=== PATIENT | male | born 1980 | race Caucasian/White ===

== ENCOUNTER → 2018-06-11 14:23 | Outpatient (CLI) | payer OTHER, SELFPAY ==
[2018-06-11 09:11] VITALS: BMI 35.9
== END ==
PROVIDERS: Family Provider Family Medicine; PCP Family Medicine; Referring Provider Physician Assistant; Visit Provider Physician Assistant
DX: J02.9 Acute pharyngitis, unspecified (principal)
CPT/HCPCS: 87077; 87081

== ENCOUNTER 2020-08-25 19:43 | Observation (INO) | payer BC, SELFPAY ==
[2018-06-11 09:11] VITALS: BMI 35.9
[2020-08-25] VITALS (7 sets, daily range): BP systolic 160–175; BP diastolic 89–104; PULSE 59–76; RESP 14–18; TEMP 36.6–36.9; O2SAT 97–100; BMI 33.9; BMI 33.6
--- NOTE | 2020-08-25 19:52 | EKG12_ITS ---
Test Reason : CP Blood Pressure : / mmHG Vent. Rate : 070 BPM Atrial Rate : 070 BPM P-R Int : 132 ms QRS Dur : 100 ms QT Int : 394 ms P-R-T Axes : 041 051 -22 degrees QTc Int : 425 ms Normal sinus rhythm Inferior infarct , age undetermined , cannot be excluded Abnormal ECG Confirmed by POONAM BERGER, DULCE MARIA ([id number]), medical assistant instructor KAREY KIRBY ([id number]) on 08/27/2020 9:28:06 AM Referred By: GRACIELA Confirmed By:DULCE MARIA LEVIN MD
--- NOTE | 2020-08-25 19:55 | RAD_ITS ---
STUDY: X-RAY CHEST REASON FOR EXAM: Male, 39 years old. Chest pain TECHNIQUE: 2 frontal images of the chest were obtained. COMPARISON: 09/14/2016 FINDINGS: The lungs are clear and expanded. There is no demonstrated pleural abnormality. Normal size heart. Normal mediastinum and laly. Normal visualized pulmonary arteries. Normal visualized aortic arch and descending thoracic aorta. Normal visualized thoracic spine. Normal visualized ribs, clavicles, and shoulders. There is no demonstrated abnormality of the visualized soft tissue structures of the upper abdomen. RAD/Chest 1 View (Portable) IMPRESSION: Normal x-ray examination of the chest. Electronically Signed: Avis Johnson MD at 20:48 EDT Tel , Service support ,
[2020-08-25 20:01] LABS: Absolute Lymphocyte Count 1.75 X10^3/uL (0.83-4.51); Absolute Neutrophil Count 3.9 X10^3/uL (2.0-7.7); Basophil# 0.06 X10^3/uL; Basophil% 0.9 % (0-1); Eosinophil# 0.07 X10^3/uL; Eosinophils% 1.1 % (0-5); Hematocrit 43.3 % (40-54); Hemoglobin 15.3 g/dL (13.0-16.5); Lymphocyte # 1.75 X10^3/ul (0.83-4.51); Lymphocyte % 27.5 % (19-41); Mean Corp Hgb Conc 35.3 g/dL (32-36); Mean Corpuscular Hgb 32.6 pg (27.0-32.0); Mean Corpuscular Volume 92.1 fL (80-94); Mean Platelet Vol. 9.7 fl (6.2-12.0); Monocyte# 0.52 X10^3/uL; Monocyte% 8.2 % (0-10); NRBC Flagged by Analyzer 0 % (0-5); Neutrophil # 3.94 X10^3/uL (2.7-7.7); Platelet Count 185 K/mm3 (150-450); RBC Distribution Width CV 11.7 % (11.6-14.6); RBC Distribution Width SD 39.3 fl (35.1-43.9); White Blood Count 6.4 K/mm3 (4.4-11.0)
[2020-08-25 20:19] LABS: Anion Gap 11 (5-15); BUN 10 mg/dL (7-18); BUN/Creat Ratio 7.7 RATIO (10-20); Chloride 96 mmol/L (98-107); EST Glomerular Filtration Rate 65 mL/min (>60); Est Glom Filt Rate - Afr Amer 79 mL/min (>60); Estimated Creatinine Clearance 83.74 ml/min; Glucose 345 mg/dL (74-106); Potassium 3.7 mmol/L (3.5-5.1); Sodium Level 134 mmol/L (136-145)
[2020-08-25] MEDS: Aspirin 81 MG TAB.CHEW 324 MG PO (21:10)
[2020-08-25] MEDS: Nitroglycerin SL (ED/IMG/CATH) 0.4 MG TABLET SL (21:10)
--- NOTE | 2020-08-25 21:56 | ED.VIS.CHEST ---
HPI History of Present Illness Chief Complaint: Chest Pain Informant: patient Onset/Context/Timing Onset: Today Narrative Narrative: Patient presents by EMS to evaluate for left-sided chest pain starting this morning prior to work. States pressure and tightness he had a radiating to his left arm into his elbow. No nausea dyspnea or diaphoresis however state he felt warm. He states he was there throughout the day at work there was no exertion and worsening factors. 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 He is adopted therefore no clear family history. Denies tobacco, denies history of hypertension, diabetes, hypercholesterolemia. Denies cough. He states may have similar symptoms 4 years ago evaluated in the ED which was negative. He is not clear if he thinks he may have had a stress test at that time. No history of heart caths. Reports currently symptoms of tightness of 2 out of 10, no arm pain currently. Prior Similar Symptoms: Yes PFSH PFSH Home Medications NK 08/25/20 [History Last Taken Unknown] Allergy/AdvReac Type Severity Reaction Status Date / Time Penicillins Allergy Unknown Verified 08/25/20 19:45 Social History Smoking Status: Never smoker alcohol intake: current alcohol intake frequency: holidays/special occasions only Alcohol type: beer ROS ROS ED Constitutional Constitutional ED: Denies chills, fever(s) or sweats Eyes Eyes: Denies change in vision ENT ENT ED: Denies dysphagia or sore throat Cardiovascular Cardiovascular: Reports chest pain; Denies leg edema, palpitations or racing heartbeat Respiratory/Chest Respiratory/Chest: Denies cough, dyspnea or dyspnea on exertion Gastrointestinal Gastrointestinal: Denies abdominal pain, diarrhea, nausea or vomiting Genitourinary Genitourinary ED: Denies dysuria, hematuria or urinary frequency Musculoskeletal Musculoskeletal: Denies back pain, extremity pain or neck pain Integumentary Denies rash or wounds Neurologic Neurologic: Denies headache(s), paresthesias or weakness EXAM Physical Exam Const Vital Signs: 08/25/20 19:44 08/25/20 21:02 Temperature 97.9 F Temperature Source Temporal Pulse Rate 75 72 Respiratory Rate 16 14 Respiratory Effort Normal Non-Labored Blood Pressure 161/104 H 172/97 H Blood Pressure Mean 123 122 Pulse Ox 97 97 Oxygen Delivery Method Room Air Room Air Positive well nourished and well developed General Appearance ED: well developed and NAD HEENT Reports moist mucous membranes normocephalic and atraumatic Eyes PERRL, EOMs intact bilaterally and conjunctivae normal General Eye ED: Yes normal appearance of both eyes Neck no lymphadenopathy and supple General: Negative for tenderness Chest Wall Chest: Negative for tenderness Resp normal respiratory effort and normal air movement Effort and Inspection: symmetric chest movement; Negative for respiratory distress Cardio regular rate, regular rhythm and no murmurs Peripheral Pulses: pulses 2+ throughout GI normal to inspection, nondistended, normoactive bowel sounds and non-tender Palpation: Negative for guarding or rebound tenderness present Back/Spine no CVA tenderness and no thoracic nor lumbar tenderness Extremity normal to inspection General Extremety ED: Negative for edema or tenderness General Extremity: Negative for edema Neuro oriented x3 and no sensory deficits noted Sensorium / Orientation: awake and alert Skin no rashes or lesions noted and no wounds MDM MDM MDM Narrative Medical decision making narrative: Patient EKG done in triage sinus rhythm, there was T wave inversions in [address] elevations or depressions. Chest x-ray cardiac labs normal. He was given aspirin in the ED nitro sublingual took his pain from a to 2 to 0.5. He had a headache therefore did not want anything further. He did agree with the Nitropaste. I spoke with Dr. Huynh, who contacted the ED prior the patient's evaluation. Discussed patient's history and findings. He recommended admission for serial enzymes will see the patient in the morning for specific testing. I spoke with hospitalist, Dr. Stout for admission. Lab Data Attestation: I reviewed the patient's lab results. Labs: Laboratory Results - last 24 hr 08/25/20 08/25/20 19:50 19:50 WBC 6.4 RBC 4.70 Hgb 15.3 Hct 43.3 MCV 92.1 MCH 32.6 H MCHC 35.3 RDW Std Deviation 39.3 RDW Coeff of Anand 11.7 Plt Count 185 MPV 9.7 Immature Gran % (Auto) 0.300 Neut % (Auto) 62.0 Lymph % (Auto) 27.5 [place] % (Auto) 8.2 Eos % (Auto) 1.1 Baso % (Auto) 0.9 Absolute Neuts (auto) 3.9 Absolute Lymphs (auto) 1.75 Nucleated RBC % 0 Sodium 134 L Potassium 3.7 Chloride 96 L Carbon Dioxide 27.0 Anion Gap 11 BUN 10 Creatinine 1.30 Estim Creat Clear Calc 83.74 Est GFR (MDRD) Af Amer 79 Est GFR (MDRD) Non-Af 65 BUN/Creatinine Ratio 7.7 L Glucose 345 H Calcium 9.0 Troponin I < 0.015 Radiography Chest X-Ray - ED: 1 View, Read by ED Physician, Read by Radiologist and No Acute Disease Diagnostic Testing: Radiology Impression Chest X-Ray 08/25/20 19:55 IMPRESSION: Normal x-ray examination of the chest. Electronically Signed: Avis Johnson MD at 20:48 EDT Tel , Service support , Discharge Plan Triage Chief Complaint: Chest Pain ED Provider: Gibran Boo Dx/Rx/DC Orders Clinical Impression: Acute chest pain Prescriptions: No Action NK RF: 0 Primary Care Provider: Ranjith Barney Referrals: Ranjith Barney MD [Primary Care Provider] - Disposition Disposition: Acute Care Hospital [facility]
[2020-08-25] MEDS: Acetaminophen 500 MG Tablet 1000 MG PO (22:00)
[2020-08-25] MEDS: Nitroglycerin Oint 1 INCH PACKET TD (22:01)
--- NOTE | 2020-08-25 22:04 | HP.PCM.HOS_ITS ---
HPI - General General Date of Admission: 08/25/20 Date of Service: 08/25/20 Chief Complaint: chest pain HPI Narrative TENZIN CONTEH, is a 39 M who presents with chest pain. Began suddenly when he is going to work and was left-sided going down his left arm. He did feel diaphoretic with this but it did improve slightly but did not go away. Patient was able to work but it did not get worse while he was at work. He went home and stated that he would adjust B but his , who works at [employer], was concerned and reached out to Dr. Huynh and had the patient come into the emergency room. Patient work-up in the emergency room was unremarkable. Patient did receive nitroglycerin and gave him headache but did have some resolution of his pain but did not completely get rid of it. Patient stated that this is pain is start about 4 years ago. He did not undergo a full cardiac work-up at that time but did not have any further events. Patient denies any VTE risk factors, such as immobility and long travel. Emergency room discussed with Dr. Huynh, who stated that he will see the patient in consultation in the morning to determine patient have stress test or cardiac catheterization. PFSH no medical history Home Medications NK 08/25/20 [History Last Taken Unknown] Allergy/AdvReac Type Severity Reaction Status Date / Time Penicillins Allergy Unknown Verified 08/25/20 19:45 other (He does not know his family medical history) Social History Smoking Status: Never smoker alcohol intake: current alcohol intake frequency: holidays/special occasions only Alcohol type: beer ROS ROS Narrative All review of systems were negative except as mentioned above in the history of present illness and the other review of systems. Vital Signs Vital Signs Vital Signs: 08/25/20 19:44 08/25/20 21:02 08/25/20 21:10 Temperature 36.6 C Temperature Source Temporal Pulse Rate 75 72 76 Respiratory Rate 16 14 Respiratory Effort Normal Non-Labored Blood Pressure 161/104 H 172/97 H 172/97 H Blood Pressure Mean 123 122 Pulse Ox 97 97 Oxygen Delivery Method Room Air Room Air 08/25/20 22:01 Temperature Temperature Source Pulse Rate 76 Respiratory Rate Respiratory Effort Blood Pressure 175/96 H Blood Pressure Mean Pulse Ox Oxygen Delivery Method Weight Weight: 113.398 kg Body Mass Index (BMI) 33.9 Physical Exam Const alert General Appearance: cooperative HEENT normocephalic Neck no lymphadenopathy Resp normal respiratory effort and no use of accessory muscles Cardio regular rate, regular rhythm, S1 normal heart sound and S2 normal heart sound GI normal to inspection, nondistended, normoactive bowel sounds, non-tender and non-distended Extremity normal to inspection Skin no rashes or lesions noted, no wounds and skin turgor normal Neuro Neuro Narrative: DTRs intact in lower extremities Sensorium / Orientation: awake and alert Results Lab / Micro Data Attestation: I reviewed the patient's lab results. Result Diagrams: 08/25/20 19:50 08/25/20 19:50 Labs: Laboratory Results - last 24 hr 08/25/20 08/25/20 19:50 19:50 WBC 6.4 RBC 4.70 Hgb 15.3 Hct 43.3 MCV 92.1 MCH 32.6 H MCHC 35.3 RDW Std Deviation 39.3 RDW Coeff of Anand 11.7 Plt Count 185 MPV 9.7 Immature Gran % (Auto) 0.300 Neut % (Auto) 62.0 Lymph % (Auto) 27.5 [place] % (Auto) 8.2 Eos % (Auto) 1.1 Baso % (Auto) 0.9 Absolute Neuts (auto) 3.9 Absolute Lymphs (auto) 1.75 Nucleated RBC % 0 Sodium 134 L Potassium 3.7 Chloride 96 L Carbon Dioxide 27.0 Anion Gap 11 BUN 10 Creatinine 1.30 Estim Creat Clear Calc 83.74 Est GFR (MDRD) Af Amer 79 Est GFR (MDRD) Non-Af 65 BUN/Creatinine Ratio 7.7 L Glucose 345 H Calcium 9.0 Troponin I < 0.015 Radiology Impression Chest X-Ray 08/25/20 19:55 IMPRESSION: Normal x-ray examination of the chest. Electronically Signed: Avis Johnson MD at 20:48 EDT Tel , Service support , Assessment & Plan Assessment/Plan (1) Acute chest pain: (2) Hyperglycemia: PLAN: 1. Chest pain * VANESSA score of 1, Lety score of 31 * ER is reached out to cardiology who will be seeing the patient in consultation on the . And will determine stress test versus cardiac catheterization. Discussed with the patient * Patient already received aspirin in the emergency room and will continue * Cycle troponins, check fasting lipid panel 2. Hyperglycemia * Blood glucose was 349, only available glucose was from September 2016 and was 107 at that time. * Will cycle his blood glucose as well as an A1c. Administer sign scale insulin as needed. 3. VTE prophylaxis: Not indicated given observation status. Charges/Coding Visit Charges OBSV E&M: 71158 Initial observation care L3
--- NOTE | 2020-08-25 22:37 | EKG12_ITS ---
Test Reason : CP ADMIT Blood Pressure : / mmHG Vent. Rate : 060 BPM Atrial Rate : 060 BPM P-R Int : 138 ms QRS Dur : 102 ms QT Int : 426 ms P-R-T Axes : 050 046 -04 degrees QTc Int : 426 ms Normal sinus rhythm Normal ECG Confirmed by POONAM BERGER, DULCE MARIA ([id number]), television news video editor KAREY KIRBY ([id number]) on 08/27/2020 9:33:38 AM Referred By: DR WILLIAMSON Confirmed By:DULCE MARIA LEVIN MD
[2020-08-26] VITALS (16 sets, daily range): BP systolic 147–174; BP diastolic 87–99; PULSE 58–91; RESP 16–20; TEMP 36.7–37.3; O2SAT 95–100
--- NOTE | 2020-08-26 00:34 | NURSING ---
Pt's blood sugar checked 08/25 PM around 2215, it was 239. Data did not transfer from the glucometer to the chart. RISHABH Wilkes.
[2020-08-26 00:41] LABS: Hemoglobin A1c 10.4 % (3.8-5.6)
[2020-08-26 02:59] LABS: Cholesterol 215 mg/dL (200); High Density Lipoprotein 37 mg/dL; Triglycerides 643 mg/dL
--- NOTE | 2020-08-26 05:45 | EKG12_ITS ---
Test Reason : AM EKG Blood Pressure : / mmHG Vent. Rate : 064 BPM Atrial Rate : 064 BPM P-R Int : 138 ms QRS Dur : 104 ms QT Int : 420 ms P-R-T Axes : 052 053 -01 degrees QTc Int : 433 ms Normal sinus rhythm Normal ECG Confirmed by POONAM BERGER, DULC EMARIA ([id number]), editor news KAREY KIRBY ([id number]) on 08/27/2020 9:32:23 AM Referred By: DR DEAN Confirmed By:DULCE MARIA LEVIN MD
[2020-08-26] MEDS: Aspirin E.C. 81 MG Tablet PO (06:09)
[2020-08-26] MEDS: 0.9% Saline Lock 10 ML Syringe IV (06:10)
--- NOTE | 2020-08-26 07:01 | CON.PCM.CA_ITS ---
Assessment & Plan Assessment/Plan (1) Acute chest pain: PLAN: He does present with chest discomfort which is new for him with exertion associated with EKG changes but negative troponin. He is also been noted to have markedly elevated blood sugar. His blood pressure was also noted to be elevated. On the basis of the above I would recommend that we evaluate him directly with a cardiac catheterization. The risk benefits alternatives have been explained to him he understands and agrees to proceed. Addendum: Cardiac catheterization today demonstrated mild disease noted in the left anterior descending artery and diagonal vessel. The rest of the vessels appeared to be free of significant disease. (2) Hypertension: PLAN: With his blood sugar elevation I would recommend that we start him on an YESSICA inhibitor. He has been advised to monitor his blood sugars more gerard sely. (3) Hyperlipidemia: PLAN: He does have a history of hypertriglyceridemia, hyperlipidemia. He would need to have his blood sugar under better control. In addition depending on his coronary status further recommendations will be made regarding the use of statins, omega-3's, or triglyceride agents. Thank you for allowing me to participate in the care of your patient. Please don't hesitate to call if any issues arise. HPI Consult Data Date of Consult: 08/26/20 HPI Narrative HPI Narrative: TENZIN CONTEH, is a 39 M who presented to the emergency him last night after experiencing chest discomfort. He described this as a heaviness in his chest radiating to his left shoulder and the ulnar part of his fingers. He also got mildly diaphoretic. He has had it at least once with exertion. He got quite concerned about this and presented to the emergency room. In the emergency room he was noted to have relief of the discomfort with a sublingual nitroglycerin. His blood pressure was also elevated. Initial cardiac enzymes were noted to be normal and his EKG demonstrated nonspecific T wave inversions. He has had no previous dizziness or diaphoresis no near syncope or syncope. His blood sugar was noted to be markedly elevated. He has not had a previous family history of coronary disease or diabetes mellitus. He has never been diagnosed with the same. At this particular time he is free of chest discomfort. [facility] Home Medications NK 08/25/20 [History Last Taken Unknown] Allergy/AdvReac Type Severity Reaction Status Date / Time Penicillins Allergy Unknown Verified 08/25/20 19:45 Social History Smoking Status: Never smoker alcohol intake: current alcohol intake frequency: holidays/special occasions only Alcohol type: beer ROS Constitutional Constitutional: Denies fever(s) or weight loss Eyes Eyes: Reports as per HPI ENT HEENT: Reports as per HPI Cardiovascular Cardiovascular: Reports chest pain with activity and other Details: He complains of chest discomfort described as a heaviness and pressure sensation radiating to his left arm. Respiratory/Chest Respiratory/Chest: Reports other Gastrointestinal Gastrointestinal: Denies change in bowel habits, nausea, vomiting or weight changes Genitourinary Genitourinary: Denies difficulty urinating Musculoskeletal Musculoskeletal: Denies joint stiffness or muscle weakness Integumentary Integumentary: Denies lesions Neurologic Neurologic: Denies dizziness or syncope Psychiatric Psychiatric: Denies anxiety Endocrine Endocrinology: Denies excessive sweating or fatigue Hematologic/Lymphatic Hematologic/Lymphatic: Denies anemia Allergic/Immunologic Allergic/Immunologic: Denies seasonal rhinorrhea Physical Exam Const oriented x3 and healthy appearing Orientation / Consciousness: awake HEENT normocephalic Eyes PERRL and conjunctivae normal Neck supple, no JVD and no carotid bruits Chest inspection of chest normal Resp normal respiratory effort and clear to auscultation bilaterally Cardio Palpation: normal PMI Rate: regular rate Rhythm: regular rhythm Heart Sounds: S1 normal and S2 normal Peripheral Pulses: pulses 2+ throughout GI normal to inspection, nondistended, normoactive bowel sounds Extremity normal to inspection and no clubbing, cyanosis or edema Psych mental status grossly normal Objective Data Vital Signs: Vital Signs Temp Pulse Resp BP Pulse Ox 99.1 F 71 20 H 160/95 H 100 08/26/20 06:06 08/26/20 06:06 08/26/20 06:06 08/26/20 06:06 08/26/20 06:06 Oxygen Delivery Method Room Air Weight: 247 lb 12.793 oz Body Mass Index (BMI) 33.6 Intake & Output: Intake and Output for Last 24 Hours 08/24/20 08/25/20 08/26/20 23:59 23:59 23:59 Intake Total 120 / 120 0 / 0 Balance 120 / 120 0 / 0 Lab / Micro Data Result Diagrams: 08/25/20 19:50 08/25/20 19:50 Labs: Laboratory Results - last 24 hr 08/25/20 08/25/20 08/25/20 19:50 19:50 19:50 WBC 6.4 RBC 4.70 Hgb 15.3 Hct 43.3 MCV 92.1 MCH 32.6 H MCHC 35.3 RDW Std Deviation 39.3 RDW Coeff of Anand 11.7 Plt Count 185 MPV 9.7 Immature Gran % (Auto) 0.300 Neut % (Auto) 62.0 Lymph % (Auto) 27.5 [place] % (Auto) 8.2 Eos % (Auto) 1.1 Baso % (Auto) 0.9 Absolute Neuts (auto) 3.9 Absolute Lymphs (auto) 1.75 Nucleated RBC % 0 Sodium 134 L Potassium 3.7 Chloride 96 L Carbon Dioxide 27.0 Anion Gap 11 BUN 10 Creatinine 1.30 Estim Creat Clear Calc 83.74 Est GFR (MDRD) Af Amer 79 Est GFR (MDRD) Non-Af 65 BUN/Creatinine Ratio 7.7 L Glucose 345 H Hemoglobin A1c 10.4 H Calcium 9.0 Troponin I < 0.015 Triglycerides Cholesterol LDL Cholesterol VLDL Cholesterol HDL Cholesterol TSH 08/25/20 08/26/20 23:18 02:00 WBC RBC Hgb Hct MCV MCH MCHC RDW Std Deviation RDW Coeff of Anand Plt Count MPV Immature Gran % (Auto) Neut % (Auto) Lymph % (Auto) [place] % (Auto) Eos % (Auto) Baso % (Auto) Absolute Neuts (auto) Absolute Lymphs (auto) Nucleated RBC % Sodium Potassium Chloride Carbon Dioxide Anion Gap BUN Creatinine Estim Creat Clear Calc Est GFR (MDRD) Af Amer Est GFR (MDRD) Non-Af BUN/Creatinine Ratio Glucose Hemoglobin A1c Calcium Troponin I < 0.015 < 0.015 Triglycerides 643 H Cholesterol 215 H LDL Cholesterol TNP VLDL Cholesterol TNP HDL Cholesterol 37 L TSH 3.80 H Cardiology Labs/Tests 08/25/20 19:50: WBC 6.4, RBC 4.70, Hgb 15.3, Hct 43.3, MCV 92.1, MCH 32.6 H, MCHC 35.3, Plt Count 185, MPV 9.7, Immature Gran % (Auto) 0.300, Neut % (Auto) 62.0, Lymph % (Auto) 27.5, [place] % (Auto) 8.2, Eos % (Auto) 1.1, Baso % (Auto) 0.9, Absolute Neuts (auto) 3.9, Nucleated RBC % 0 08/25/20 19:50: Sodium 134 L, Potassium 3.7, Chloride 96 L, Carbon Dioxide 27.0, Anion Gap 11, BUN 10, Creatinine 1.30, Est GFR (MDRD) Af Amer 79, Est GFR (MDRD) Non-Af 65, BUN/Creatinine Ratio 7.7 L, Glucose 345 H, Calcium 9.0, Troponin I < 0.015 08/25/20 19:50: Hemoglobin A1c 10.4 H 08/25/20 23:18: Troponin I < 0.015 08/26/20 02:00: Troponin I < 0.015, Triglycerides 643 H, Cholesterol 215 H, LDL Cholesterol TNP, VLDL Cholesterol TNP, HDL Cholesterol 37 L Rhythm: EKG: Normal sinus rhythm with inferior T wave inversions. ECHO: Stress Test: Cardiac Cath: PCI: CT Surgery: Holter monitor: EPS: PPM: CXR: Chest CT Scan: Radiography Diagnostic Testing: Radiology Impression Chest X-Ray 08/25/20 19:55 IMPRESSION: Normal x-ray examination of the chest. Electronically Signed: Avis Johnson MD at 20:48 EDT Tel , Service support ,
[2020-08-26 08:38] LABS: Bedside Glucose 248 mg/dL (70-110)
[2020-08-26 08:38] LABS: Bedside Glucose 239 mg/dL (70-110)
--- NOTE | 2020-08-26 09:01 | CASEMGMT ---
According to the [employer] website, the following are in-network tertiary facilities: [facility], [facility], [facility], [facility], [facility], [facility], [facility], and . Sonny KEATING CM
[2020-08-26] MEDS: 0.9% Normal Saline 1,000 ML 60 ML IV (10:15)
--- NOTE | 2020-08-26 11:03 | PCM.DC ---
Discharge Instructions Diet Discharge Diet: Carb Control Diet Activity Discharge Activity: Return to Normal Activity Additional Activity Instructions:: Follow post-cath instructions Dressing / Incision Call your doctor if your incision/area has: Continuous Slow Oozing, Sudden Increased Bleeding, Increased Pain/ Swelling, Increased Redness, Foul Smelling Discharge and Swelling at the incision site Follow Up Care Test Results: Test results from this visit will be discussed in further detail at your follow-up appointment, if applicable. Discharge Plan Admission Admit Date/Time: 08/25/20 22:03 Primary Reason for Your Visit: Chest pain Attending Provider: Sohan Aponte Primary Care Provider: Ranjith Barney Consulting Providers: Alfred Huynh Instructions Additional Instructions / Restrictions: Your hemoglobin A1c is 10.4% indicating type 2 diabetes with significantly elevated glucose on admission. Normal hemoglobin A1c is 3.8 to 5.6%. You were started on oral medication, Metformin for blood sugar control. Prescription for glucometer and testing supplies given as well. Recommend checking blood sugar 3 times daily before meals and recording findings for further follow-up with PCP/endocrinology. You were referred to endocrinology for further management and may require insulin for further reduction in hemoglobin A1c. Additionally, you are initiated on lisinopril for high blood pressure and atorvastatin for high cholesterol. Follow-up with primary care physician for further adjustment in these medications. You will need repeat cholesterol panel in 4 to 6 weeks. Recommend checking blood pressure twice daily over the next few weeks and document recordings for follow-up with PCP. Isabel Diehl NP. Discharge Orders/Prescriptions Prescriptions: New lisinopril 20 mg Tablet 20 mg PO DAILY Qty: 30 RF: 0 atorvastatin 20 mg Tablet 20 mg PO QHS Qty: 30 RF: 0 metformin 500 mg tablet,ER meir.retention 24 hr 500 mg PO BID Qty: 60 RF: 0 Other Ambulatory Orders: Glucometer (Routine) Location: None Selected Ordered By: Isabel Diehl NP Referrals / Follow Up: Ranjith Barney MD [Primary Care Provider] - In 1 Week Adrian Medina MD [STAFF PHYSICIAN] - Within 2 Weeks Disposition Disposition (needs filled in before D/C Order can be placed): Home, Self Care
[2020-08-26] MEDS: Lisinopril 20 MG Tablet PO (11:12)
[2020-08-26] MEDS: Insulin Lispro 100 UNIT/ML INSULN.PEN SC (11:18)
--- NOTE | 2020-08-26 11:44 | PCM.DC.SUM ---
Documented by User: Isabel Diehl NP, PEDIATRIC GENETICIST-C 08/26/20 11:50 Providers Date of Admission: 08/25/20 Date of Discharge: 08/26/20 Primary Care Physician: Dr. Ranjith Barney MD Consultations 08/25/20 22:37 Consult: Cardiology Routine Consulting Provider: Alfred Huynh Reason for Consult: chest pain EMERGENT Consult: No MD Notified: Yes Date Notified: 08/25/20 Time Notified: 22:00 Method of Notification: Verbal Reason For Visit: CHEST PAIN Diagnosis Discharge Diagnosis (1) Acute chest pain: Status: Acute Code(s): R07.9 - Chest pain, unspecified (2) Hypertension: Status: Chronic Code(s): I10 - Essential (primary) hypertension (3) Hyperlipidemia: Status: Acute Code(s): E78.5 - Hyperlipidemia, unspecified Medications at Discharge Home Medications atorvastatin 20 mg PO QHS #30 tab 08/26/20 lisinopril 20 mg PO DAILY #30 tab 08/26/20 metformin 500 mg PO BID #60 tab 08/26/20 Hospital Course Operations None Procedures Cardiac catheterization Summary of Care Provided Minutes Spent on Discharge: 35 Hospital Course: Patient is a 39-year-old male admitted 08/25/2020 due to chest pain. 1. Chest pain, ACS ruled out-troponin negative. Cardiology consulted. Patient underwent heart cath which showed no obstructive coronary arteries. Continue medical management per below. Follow-up with PCP in 1 week 2. New diagnosis hypertension-initiated on lisinopril 20 mg daily. Instructed patient on home blood pressure monitoring with further follow-up with PCP. 3. New diagnosis hyperlipidemia-initiated on statin. Recommend repeat lipid profile in 4 to 6 weeks. 4. New onset type 2 diabetes with significant hyperglycemia-hemoglobin A1c 10.4%. Glucose on admission 345. Initiated on metformin extended release 500 mg twice daily. Glucometer and testing supply rx at [place]. Patient will likely need started on insulin as well. Instructed patient on glucose testing at home with further follow-up with PCP/endocrinology referral. Patient seen and examined prior to discharge. Physical assessment as noted below. Patient is stable for discharge with follow up recommendations as noted above. This patient was seen by SARKIS Pfeiffer under the supervision of Dr. Aponte. Physical Exam Const alert, oriented x3 and no apparent distress Orientation / Consciousness: awake, oriented to person, oriented to place and oriented to time HEENT normocephalic and moist oral mucous membranes Eyes PERRL, EOMs intact bilaterally and conjunctivae normal Neck no lymphadenopathy Resp normal respiratory effort and clear to auscultation bilaterally Cardio regular rate, regular rhythm and no murmurs Peripheral Pulses: pulses 2+ throughout GI normal to inspection, nondistended, normoactive bowel sounds, non-tender and non-distended Extremity normal to inspection Skin no rashes or lesions noted Lesions: no lesions Rashes: no rashes Trauma: no lacerations or abrasions Neuro CN's II-XII intact bilaterally, no focal motor deficits, no sensory deficits noted and deep tendon reflexes 2+ bilaterally Psych mental status grossly normal and affect normal Weight / BMI Weight Weight: 247 lb 12.793 oz Body Mass Index (BMI) 33.6 ABG / Lab / Microbiology Data Result Diagrams: 08/25/20 19:50 08/25/20 19:50 Laboratory: Laboratory Results - last 24 hr 08/25/20 08/25/20 08/25/20 19:50 19:50 19:50 WBC 6.4 RBC 4.70 Hgb 15.3 Hct 43.3 MCV 92.1 MCH 32.6 H MCHC 35.3 RDW Std Deviation 39.3 RDW Coeff of Anand 11.7 Plt Count 185 MPV 9.7 Immature Gran % (Auto) 0.300 Neut % (Auto) 62.0 Lymph % (Auto) 27.5 [place] % (Auto) 8.2 Eos % (Auto) 1.1 Baso % (Auto) 0.9 Absolute Neuts (auto) 3.9 Absolute Lymphs (auto) 1.75 Nucleated RBC % 0 Sodium 134 L Potassium 3.7 Chloride 96 L Carbon Dioxide 27.0 Anion Gap 11 BUN 10 Creatinine 1.30 Estim Creat Clear Calc 83.74 Est GFR (MDRD) Af Amer 79 Est GFR (MDRD) Non-Af 65 BUN/Creatinine Ratio 7.7 L Glucose 345 H Hemoglobin A1c 10.4 H Calcium 9.0 Troponin I < 0.015 Triglycerides Cholesterol LDL Cholesterol VLDL Cholesterol HDL Cholesterol TSH POC Glucose 08/25/20 08/25/20 08/26/20 23:10 23:18 02:00 WBC RBC Hgb Hct MCV MCH MCHC RDW Std Deviation RDW Coeff of Anand Plt Count MPV Immature Gran % (Auto) Neut % (Auto) Lymph % (Auto) [place] % (Auto) Eos % (Auto) Baso % (Auto) Absolute Neuts (auto) Absolute Lymphs (auto) Nucleated RBC % Sodium Potassium Chloride Carbon Dioxide Anion Gap BUN Creatinine Estim Creat Clear Calc Est GFR (MDRD) Af Amer Est GFR (MDRD) Non-Af BUN/Creatinine Ratio Glucose Hemoglobin A1c Calcium Troponin I < 0.015 < 0.015 Triglycerides 643 H Cholesterol 215 H LDL Cholesterol TNP VLDL Cholesterol TNP HDL Cholesterol 37 L TSH 3.80 H POC Glucose 239 H 08/26/20 06:07 WBC RBC Hgb Hct MCV MCH MCHC RDW Std Deviation RDW Coeff of Anand Plt Count MPV Immature Gran % (Auto) Neut % (Auto) Lymph % (Auto) [place] % (Auto) Eos % (Auto) Baso % (Auto) Absolute Neuts (auto) Absolute Lymphs (auto) Nucleated RBC % Sodium Potassium Chloride Carbon Dioxide Anion Gap BUN Creatinine Estim Creat Clear Calc Est GFR (MDRD) Af Amer Est GFR (MDRD) Non-Af BUN/Creatinine Ratio Glucose Hemoglobin A1c Calcium Troponin I Triglycerides Cholesterol LDL Cholesterol VLDL Cholesterol HDL Cholesterol TSH POC Glucose 248 H Radiography Diagnostic Testing: Radiology Impression Chest X-Ray 08/25/20 19:55 IMPRESSION: Normal x-ray examination of the chest. Electronically Signed: Avis Johnson MD at 20:48 EDT Tel , Service support , D/C Instructions Discharge Diet: Carb Control Diet Additional Activity Instructions: Follow post-cath instructions Call your doctor if your incision/area has: Continuous Slow Oozing, Sudden Increased Bleeding, Increased Pain/ Swelling, Increased Redness, Foul Smelling Discharge and Swelling at the incision site Meaningful Use Info Meaningful Use Diagnoses (Choose all that apply): None applicable Discharge Plan Admission Admit Date/Time: 08/25/20 22:03 Primary Reason for Your Visit: Chest pain Attending Provider: Sohan Aponte Primary Care Provider: Ranjith Barney Consulting Providers: Alfred Huynh Instructions Additional Instructions / Restrictions: Your hemoglobin A1c is 10.4% indicating type 2 diabetes with significantly elevated glucose on admission. Normal hemoglobin A1c is 3.8 to 5.6%. You were started on oral medication, Metformin for blood sugar control. Prescription for glucometer and testing supplies given as well. Recommend checking blood sugar 3 times daily before meals and recording findings for further follow-up with PCP/endocrinology. You were referred to endocrinology for further management and may require insulin for further reduction in hemoglobin A1c. Additionally, you are initiated on lisinopril for high blood pressure and atorvastatin for high cholesterol. Follow-up with primary care physician for further adjustment in these medications. You will need repeat cholesterol panel in 4 to 6 weeks. Recommend checking blood pressure twice daily over the next few weeks and document recordings for follow-up with PCP. Isabel Diehl NP. Discharge Orders/Prescriptions Prescriptions: New lisinopril 20 mg Tablet 20 mg PO DAILY Qty: 30 RF: 0 atorvastatin 20 mg Tablet 20 mg PO QHS Qty: 30 RF: 0 metformin 500 mg tablet,ER meir.retention 24 hr 500 mg PO BID Qty: 60 RF: 0 Other Ambulatory Orders: Glucometer (Routine) Location: None Selected Ordered By: Isabel Diehl NP Referrals / Follow Up: Ranjith Barney MD [Primary Care Provider] - In 1 Week Adrian Medina MD [STAFF PHYSICIAN] - Within 2 Weeks Disposition Disposition (needs filled in before D/C Order can be placed): Home, Self Care Documented by User: Dr. Sohan Aponte MD 08/26/20 14:02 Providers Date of Admission: 08/25/20 Reason For Visit: CHEST PAIN Medications at Discharge Home Medications atorvastatin 20 mg PO QHS #30 tab 08/26/20 lisinopril 20 mg PO DAILY #30 tab 08/26/20 metformin 500 mg PO BID #60 tab 08/26/20 ABG / Lab / Microbiology Data Result Diagrams: 08/25/20 19:50 08/25/20 19:50 Discharge Plan Admission Admit Date/Time: 08/25/20 22:03 Primary Reason for Your Visit: Chest pain Attending Provider: Sohan Aponte Primary Care Provider: Ranjith Barney Consulting Providers: Alfred Huynh Instructions Additional Instructions / Restrictions: Your hemoglobin A1c is 10.4% indicating type 2 diabetes with significantly elevated glucose on admission. Normal hemoglobin A1c is 3.8 to 5.6%. You were started on oral medication, Metformin for blood sugar control. Prescription for glucometer and testing supplies given as well. Recommend checking blood sugar 3 times daily before meals and recording findings for further follow-up with PCP/endocrinology. You were referred to endocrinology for further management and may require insulin for further reduction in hemoglobin A1c. Additionally, you are initiated on lisinopril for high blood pressure and atorvastatin for high cholesterol. Follow-up with primary care physician for further adjustment in these medications. You will need repeat cholesterol panel in 4 to 6 weeks. Recommend checking blood pressure twice daily over the next few weeks and document recordings for follow-up with PCP. Isabel Diehl NP. Discharge Orders/Prescriptions Prescriptions: New lisinopril 20 mg Tablet 20 mg PO DAILY Qty: 30 RF: 0 atorvastatin 20 mg Tablet 20 mg PO QHS Qty: 30 RF: 0 metformin 500 mg tablet,ER meir.retention 24 hr 500 mg PO BID Qty: 60 RF: 0 Other Ambulatory Orders: Glucometer (Routine) Location: None Selected Ordered By: Isabel Diehl NP Referrals / Follow Up: Ranjith Barney MD [Primary Care Provider] - In 1 Week Adrian Medina MD [STAFF PHYSICIAN] - Within 2 Weeks Disposition Disposition (needs filled in before D/C Order can be placed): Home, Self Care Charges/Coding Addendum Addendum: Dr. Aponte: I personally reviewed the chart and examined the patient, and agree with the above findings. 39-year-old male presents from home with chest pain. Heart cath demonstrated mild disease however he did have an elevated A1c to 10.4 therefore on discharge she was started on Lipitor, lisinopril, and metformin. I had an extensive conversation with both him and his about lifestyle modifications including diet and exercise as well as the reason why I elected not to proceed with insulin and what he has to do to potentially not need medications in the future for his diabetes. He will need to follow-up with his PCP in 3 to 5 days and potentially endocrinology as an outpatient. I did discuss with him the plan for discharge today and both he and his understood the risks and benefits of discharge today and would like him to go home today. Visit Charges OBSV E&M: [id number] Observation care discharge
[2020-08-26 12:06] LABS: Bedside Glucose 276 mg/dL (70-110)
--- NOTE | 2020-08-28 12:31 | CL.D_ITS ---
Patient Name: TENZIN CONTEH Study Date: 08/26/2020 Performing: Alfred Huynh MD Ht: 72.04 inches 183 cm : 1980 Wt: 246.92 lbs 112 kg Age: 39 Gender: male BSA: 2.33 PROCEDURE(S) PERFORMED GE87-MXI/COR/LV CLINICAL PROFILE AND INDICATIONS Indications: Suspected CAD Heart Failure: None Stress/Imaging Stress/Image Study Performed: No CAD Presentations: Unstable angina. CONCLUSIONS Non obstructive coronary arteries Hypertension RECOMMENDATIONS Medical therapy DESCRIPTION OF PROCEDURE The patient arrived to the procedure lab. The risks and benefits of the procedure as well as a full d escription of our services here and current unavailability of surgical backup were fully explained to the patient and/or their significant other prior to the catheterization. The Timeout was completed, verifying the correct patient and procedure. The patient's procedural site was prepped and draped in the usual fashion. Local anesthetic was given subcutaneously to right radial region with Lidocaine 2% . Using a modified Seldinger technique, arterial access was obtained via the right radial artery, a 6 Fr sheath was inserted. Left Coronary Artery selective angiography was performed in multiple views u sing a 5 Fr. 4.0 Schurz catheter. Right Coronary Artery selective angiography was then performed in mu ltiple views using a 5 Fr. 4.0 Schurz catheter. Left Ventriculography was performed in WATTS projection using a 5 Fr. Pigtail catheter. LV to AO pullback pressures were then recorded.The arterial sheath was pulled and a TR Band was applied for hemostasis CORONARY ANGIOGRAPHY DOMINANCE: Co- Dominant LEFT HEART ASSESSMENT Normal Left Ventricular systolic function LEFT MAIN: Angiographically normal LEFT ANTERIOR DESCENDING ARTERY: MID LAD: 30 % Stenosis DIAGONAL 1: Ostial - 50 % Stenosis CIRCUMFLEX ARTERY: No significant disease noted RAMUS: No significant disease noted RIGHT CORONARY ARTERY: No significant disease noted COMPLICATIONS No Complications PROCEDURE MEDICATIONS Versed 1 mg IV Fentanyl 50 mcg IV Versed 1 mg IV Versed 1 mg IV Oxygen: 2 L/min via nasal cannula SUMMARY OF HEMODYNAMIC DATA Time AIR REST ECG 08:07:42 AO 121/85 (104) SA 08:22:34 LV 111/-7, -2 08:29:17 LV 116/-5, -3 08:29:24 LV 116/-3, 0 08:30:00 LV 98/-3, -1 08:30:06 LVp 121/-5, 0 08:30:14 AO 122/76 (100) 08:30:19 Signed By Alfred Huynh MD On 08/26/2020 8:37:09 AM Alfred Huynh MD
== END 2020-08-26 11:05 | disposition home or self-care (01) ==
LOC: ED 22:01 → PCU 22:40
PROVIDERS: Emergency Provider Emergency Medicine; PCP Family Medicine; Visit Provider Family Medicine
DX: R07.89 Other chest pain (principal); I10 Essential (primary) hypertension; E78.5 Hyperlipidemia, unspecified; E11.65 Type 2 diabetes mellitus with hyperglycemia
CPT/HCPCS: 36415; 71045; 80048; 80061; 82962; 83036; 84443; 84484; 85025; 93005; 93458; 99152; 99153; 99218; 99285; J7030; J7040; A4216; C1769; C1894; G0378; Q9967

== ENCOUNTER → 2020-12-22 16:01 | Outpatient (CLI) | payer BC, SELFPAY ==
[2020-12-22 18:14] LABS: ALB/GLOB Ratio 1.1 RATIO (0.9-2.4); AST(SGOT) 19 U/L (15-37); Alanine Aminotransfer ALT/SGPT 31 U/L (16-61); Albumin, Serum 4.1 g/dL (3.2-5.0); Alkaline Phosphatase 43 U/L (45-117); Anion Gap 10 (5-15); BUN 20 mg/dL (7-18); BUN/Creat Ratio 17.5 RATIO (10-20); Calcium,Total 9.5 mg/dL (8.5-10.1); Chloride 104 mmol/L (98-107); Creatinine, Serum 1.14 mg/dL (0.70-1.30); EST Glomerular Filtration Rate 76 mL/min (>60); Est Glom Filt Rate - Afr Amer 91 mL/min (>60); Globulin 3.6 g/dL (2.2-4.2); Glucose 99 mg/dL (74-106); Protein, Total 7.7 g/dL (6.4-8.2); Sodium Level 138 mmol/L (136-145)
[2020-12-22 18:32] LABS: Hemoglobin A1c 5.5 % (3.8-5.6)
[2020-12-22 18:38] LABS: Microalbumin:Creatinine Ratio 238.5 mg/g CRE (<30 mg/g CRE)
== END ==
PROVIDERS: PCP Family Medicine; Referring Provider Family Medicine; Visit Provider Family Medicine
DX: E11.9 Type 2 diabetes mellitus without complications (principal)
CPT/HCPCS: 36415; 80053; 82043; 82570; 83036

== ENCOUNTER 2021-02-02 08:01 | Emergency (ER) | payer BC, SELFPAY ==
[2021-02-02 08:05] VITALS: BP 113/72; PULSE 73; RESP 16; TEMP 36.8; O2SAT 99
[2021-02-02 08:07] VITALS: BP 113/72; PULSE 77; RESP 14; TEMP 36.8; O2SAT 99; BMI 30.1
--- NOTE | 2021-02-02 08:34 | EKG12_ITS ---
Test Reason : SYNCOPE Blood Pressure : / mmHG Vent. Rate : 080 BPM Atrial Rate : 080 BPM P-R Int : 140 ms QRS Dur : 100 ms QT Int : 382 ms P-R-T Axes : 055 054 003 degrees QTc Int : 440 ms Normal sinus rhythm Normal ECG Confirmed by POONAM BERGER, DULCE MARIA ([id number]), supervising editor news reel KAREY KIRBY ([id number]) on 02/03/2021 7:54:29 AM Referred By: GRACIELA Confirmed By:DULCE MARIA LEVIN MD
--- NOTE | 2021-02-02 08:35 | EX.ED.DYSGE1 ---
HPI History of Present Illness Chief Complaint: Syncope Informant: patient and spouse/S.O. Narrative Narrative: Patient presents via EMS after a syncopal episode at work. Patient states he is not felt well for the last 3 or 4 days. He feels very fatigued and tired. He had a mild headache and complaining of some muscular pain in his upper back. He thought he was good enough to go to work this morning. Shortly after arriving at work he felt lightheaded and became diaphoretic. He did have a syncopal episode but coworkers did catch him and lowered him to the ground carefully. Patient denies palpitations. He did take a rapid Covid test at home yesterday that was negative. [facility] Medical History (Updated 02/02/21 @ 11:[address] Sunshine Michel MD) Essential (primary) hypertension Hyperglycemia Hyperlipidemia Home Medications atorvastatin 20 mg PO QHS #30 tab 08/26/20 [Rx Last Taken Unknown] lisinopril 20 mg PO DAILY #30 tab 08/26/20 [Rx Last Taken Unknown] metformin 500 mg PO BID #60 tab 08/26/20 [Rx Last Taken Unknown] Allergy/AdvReac Type Severity Reaction Status Date / Time Penicillins Allergy Unknown Verified 02/02/21 08:06 Surgical History History of left heart catheterization (08/26/20) Social History Smoking Status: Never smoker alcohol intake: current alcohol intake frequency: holidays/special occasions only Alcohol type: beer ROS ROS ED Constitutional Constitutional ED: Denies chills or fever(s) Eyes Eyes: Denies change in vision ENT ENT ED: Denies sore throat Cardiovascular Cardiovascular: Denies chest pain or palpitations Respiratory/Chest Respiratory/Chest: Denies cough or dyspnea Gastrointestinal Gastrointestinal: Denies abdominal pain, diarrhea, nausea or vomiting Genitourinary Genitourinary ED: Denies dysuria Musculoskeletal Musculoskeletal: Reports back pain Integumentary Denies rash Neurologic Neurologic: Reports headache(s); Denies weakness Psychiatric Psychiatric: Denies anxiety or depression Endocrine Endocrinology: Denies polydipsia or polyuria Allergic/Immunologic Allergic/Immunologic ED: Denies urticaria EXAM Physical Exam Const Vital Signs: 02/02/21 08:05 02/02/21 08:07 Temperature 98.3 F 98.3 F Temperature Source Oral Oral Pulse Rate 73 77 Respiratory Rate 16 14 Respiratory Effort Normal Non-Labored Respiratory Pattern Normal Blood Pressure 113/72 113/72 Blood Pressure Mean 85 85 Pulse Ox 99 99 Oxygen Delivery Method Room Air Room Air Positive well nourished and well developed General Appearance ED: well developed HEENT Reports moist mucous membranes Eyes PERRL and EOMs intact bilaterally Neck supple Chest Wall inspection of chest normal and palpation of chest normal Resp normal respiratory effort and clear to auscultation bilaterally Cardio regular rate and regular rhythm GI non-tender Auscultation: hypoactive bowel sounds Palpation: soft Extremity normal to inspection Neuro oriented x3 Sensorium / Orientation: alert Psych mental status grossly normal Skin no rashes or lesions noted MDM MDM MDM Narrative Medical decision making narrative: Lab work, EKG, chest x-ray, head CT obtained. Patient given a liter IV fluids. Lab Data Attestation: I reviewed the patient's lab results. Labs: Laboratory Results - last 24 hr 02/02/21 02/02/21 02/02/21 07:45 08:45 09:05 WBC 4.8 RBC 4.87 Hgb 15.7 Hct 44.1 MCV 90.6 MCH 32.2 H MCHC 35.6 RDW Std Deviation 40.1 RDW Coeff of Anand 12.0 Plt Count 142 L MPV 10.0 Immature Gran % (Auto) 0.200 Neut % (Auto) 67.6 Lymph % (Auto) 19.0 [place] % (Auto) 12.8 H Eos % (Auto) 0.2 Baso % (Auto) 0.2 Absolute Neuts (auto) 3.3 Absolute Lymphs (auto) 0.92 Nucleated RBC % 0 Sodium 132 L Potassium 4.0 Chloride 99 Carbon Dioxide 19.0 L Anion Gap 14 BUN 22 H Creatinine 1.33 H Estim Creat Clear Calc 81.04 Est GFR (MDRD) Af Amer 77 Est GFR (MDRD) Non-Af 63 BUN/Creatinine Ratio 16.5 Glucose 190 H Calcium 9.4 Troponin I High Sens 5 TSH 2.04 Monoscreen Negative Radiography Chest X-Ray - ED: 1 View, Read by ED Physician and No Acute Disease Diagnostic Testing: Clinical Impression(s) from Imaging Studies Brain CT 02/02/21 08:37 IMPRESSION: Normal unenhanced CT scan of the brain. Electronically Signed: Cal Vanessa MD at 9:23 EST , Service support , Chest X-Ray 02/02/21 09:05 IMPRESSION: Normal x-ray examination of the chest. Electronically Signed: Cal Vanessa MD at 9:23 EST , Service support , EKG Initial EKG: Attestation: I personally reviewed and interpreted this EKG as follows: Interpretation: Sinus Rhythm (Sinus 80 with no acute ischemia.) Treatment and Re-Evaluation Comments:: Lab work significant for dehydration with bicarb of 19 and creatinine 1.33. TSH is normal. Troponin normal. [place] test negative. Rapid Covid test negative. Chest x-ray reveals no focal infiltrate. Head CT unremarkable. On repeat evaluation patient does feel improved. Test results discussed with patient and at bedside. He will be discharged home with supportive care. Discharge Plan Triage Chief Complaint: Syncope ED Provider: Sunshine Michel Dx/Rx/DC Orders Clinical Impression: Syncope, Dehydration Instructions: Dehydration, ED Dizziness or Syncope ... Prescriptions: No Action lisinopril 20 mg Tablet 20 mg PO DAILY Qty: 30 RF: 0 atorvastatin 20 mg Tablet 20 mg PO QHS Qty: 30 RF: 0 metformin 500 mg tablet,ER meir.retention 24 hr 500 mg PO BID Qty: 60 RF: 0 Primary Care Provider: Ranjith Barney Referrals: Ranjith Barney MD [Primary Care Provider] - 1 Week if not improving Disposition Disposition: Home, Self Care
--- NOTE | 2021-02-02 08:37 | CT_ITS ---
STUDY: CT BRAIN WITHOUT CONTRAST REASON FOR EXAM: Male, 40 years old. Headaches. Syncope. RADIATION DOSAGE (If Supplied By Facility): CTDIvol = ( 44.99 ) mGy, DLP = ( 812.98 ) mGycm TECHNIQUE: Transaxial CT imaging of the brain was performed without administration of intravenous contrast material. Individualized dose optimization techniques were used for this CT. COMPARISON: No relevant priors. FINDINGS: Normal soft tissue structures. Normal calvarium. Normal size ventricles and extra-axial spaces for the patient''s age. Normal white matter tracts of the cerebral hemispheres. Normal basal ganglia and thalami. Normal brainstem. Normal cerebellum. There is no intracranial hemorrhage. There are no findings of an acute ischemic infarction. Normal visualized paranasal sinuses. CT/Brain/Head without Contrast IMPRESSION: Normal unenhanced CT scan of the brain. Electronically Signed: Cal Vanessa MD at 9:23 EST , Service support ,
[2021-02-02] MEDS: 0.9% Normal Saline 1,000 ML 1000 ML IV (09:00)
--- NOTE | 2021-02-02 09:05 | RAD_ITS ---
STUDY: X-RAY CHEST REASON FOR EXAM: Male, 40 years old. Syncope TECHNIQUE: Single AP portable view of the chest. COMPARISON: Comparison is made with prior study dated 08/25/2020. FINDINGS: EKG electrodes are seen. The lungs are clear and expanded. There is no demonstrated pleural abnormality. Normal size heart. Normal mediastinum and laly. Normal visualized pulmonary arteries. Normal visualized aortic arch and descending thoracic aorta. Normal visualized thoracic spine. Normal visualized ribs, clavicles, and shoulders. There is no demonstrated abnormality of the visualized soft tissue structures of the upper abdomen. RAD/Chest 1 View (Portable) IMPRESSION: Normal x-ray examination of the chest. Electronically Signed: Cal Vanessa MD at 9:23 EST , Service support ,
[2021-02-02 09:18] LABS: Absolute Lymphocyte Count 0.92 X10^3/uL (0.83-4.51); Absolute Neutrophil Count 3.3 X10^3/uL (2.0-7.7); Basophil# 0.01 X10^3/uL; Basophil% 0.2 % (0-1); Eosinophil# 0.01 X10^3/uL; Eosinophils% 0.2 % (0-5); Hematocrit 44.1 % (40-54); Hemoglobin 15.7 g/dL (13.0-16.5); Lymphocyte # 0.92 X10^3/ul (0.83-4.51); Mean Corp Hgb Conc 35.6 g/dL (32-36); Mean Corpuscular Hgb 32.2 pg (27.0-32.0); Mean Corpuscular Volume 90.6 fL (80-94); Monocyte# 0.62 X10^3/uL; Monocyte% 12.8 % (0-10); NRBC Flagged by Analyzer 0 % (0-5); Neutrophil # 3.26 X10^3/uL (2.7-7.7); Neutrophil % 67.6 % (47-70); Platelet Count 142 K/mm3 (150-450); RBC Distribution Width SD 40.1 fl (35.1-43.9); Red Blood Count 4.87 M/mm3 (4.6-6.2); White Blood Count 4.8 K/mm3 (4.4-11.0)
[2021-02-02 09:36] LABS: Anion Gap 14 (5-15); BUN 22 mg/dL (7-18); BUN/Creat Ratio 16.5 RATIO (10-20); Calcium,Total 9.4 mg/dL (8.5-10.1); Chloride 99 mmol/L (98-107); Creatinine, Serum 1.33 mg/dL (0.70-1.30); EST Glomerular Filtration Rate 63 mL/min (>60); Est Glom Filt Rate - Afr Amer 77 mL/min (>60); Estimated Creatinine Clearance 81.04 ml/min; Glucose 190 mg/dL (74-106); Sodium Level 132 mmol/L (136-145); Thyroid Stim Hormone (TSH) 2.04 uIU/mL (0.358-3.74); Troponin-I HS 5 pg/mL (3.0-78.0)
[2021-02-02 10:12] LABS: Internal QC Validated? YES +Cl - CLEAR BKGD
[2021-02-02 10:13] LABS: Monotest Negative (Negative)
[2021-02-02 11:38] VITALS: BP 130/74; PULSE 79; RESP 14; TEMP 37.1; O2SAT 93; O2SAT 96
== END 2021-02-02 11:41 | disposition home or self-care (01) ==
PROVIDERS: Emergency Provider Emergency Medicine; PCP Family Medicine
DX: R55 Syncope and collapse (principal); E86.0 Dehydration; I10 Essential (primary) hypertension; E78.5 Hyperlipidemia, unspecified; R73.9 Hyperglycemia, unspecified; Z79.84 Long term (current) use of oral hypoglycemic drugs; Z79.899 Other long term (current) drug therapy
CPT/HCPCS: 70450; 71045; 80048; 84443; 84484; 85025; 86308; 87426; 93005; 99285

== ENCOUNTER → 2021-02-03 14:57 | Outpatient (CLI) | payer BC, SELFPAY ==
[2021-02-03 18:15] LABS: Internal QC Validated? YES +Cl - CLEAR BKGD; Monotest Negative (Negative)
[2021-02-03 18:17] LABS: AST(SGOT) 41 U/L (15-37); Alanine Aminotransfer ALT/SGPT 58 U/L (16-61); Alkaline Phosphatase 52 U/L (45-117); Anion Gap 10 (5-15); BUN 16 mg/dL (7-18); Calcium,Total 9.2 mg/dL (8.5-10.1); Chloride 100 mmol/L (98-107); Creatinine, Serum 1.07 mg/dL (0.70-1.30); EST Glomerular Filtration Rate 81 mL/min (>60); Est Glom Filt Rate - Afr Amer 98 mL/min (>60); Globulin 4.1 g/dL (2.2-4.2); Glucose 106 mg/dL (74-106); Potassium 3.8 mmol/L (3.5-5.1); Protein, Total 8.1 g/dL (6.4-8.2); Rheumatoid Factor < 10.0 IU/mL (<15); Sodium Level 135 mmol/L (136-145)
[2021-02-03 18:57] LABS: Osmolality, Serum 283 mOsm/KG (275-295)
[2021-02-05 15:45] LABS: ANTINUCLEAR ANTIBODIES DIRECT Negative (Negative)
[2021-02-06 00:06] LABS: Endomysial Antibody IgA Negative (Negative); Immunoglobulin A 308 mg/dL (90-386)
[2021-02-06 08:15] LABS: CCP IgG Antibodies 5 units (0-19); Deamidated Gliadin IgA 5 units (0-19); Deamidated Gliadin IgG 1 units (0-19); t-Transglutaminase IgA <2 U/mL (0-3)
== END ==
PROVIDERS: PCP Family Medicine; Referring Provider Family Medicine; Visit Provider Family Medicine
DX: R19.7 Diarrhea, unspecified (principal); E87.1 Hypo-osmolality and hyponatremia; R55 Syncope and collapse; M25.539 Pain in unspecified wrist
CPT/HCPCS: 36415; 80053; 82784; 83516; 83930; 84443; 86038; 86200; 86255; 86308; 86431; 87506

== ENCOUNTER 2021-10-12 09:38 | Emergency (ER) | payer BC, SELFPAY ==
[2021-10-12 09:39] VITALS: BP 163/97; PULSE 71; RESP 15; TEMP 37.1; O2SAT 99; BMI 33.7
--- NOTE | 2021-10-12 10:22 | EKG12_ITS ---
Test Reason : CP Blood Pressure : / mmHG Vent. Rate : 068 BPM Atrial Rate : 068 BPM P-R Int : 148 ms QRS Dur : 104 ms QT Int : 398 ms P-R-T Axes : 045 040 -08 degrees QTc Int : 423 ms Normal sinus rhythm Possible Inferior infarct , age undetermined Abnormal ECG Confirmed by JERMAINE BERGER, IFEOMA ([id number]), index editor JESUSITA JOYA ([id number]) on 10/13/2021 9:24:18 AM Referred By: JANELL/DALLIN Confirmed By:IFEOMA DEAN MD
[2021-10-12 10:32] LABS: Absolute Lymphocyte Count 1.44 X10^3/uL (0.83-4.51); Absolute Neutrophil Count 4.5 X10^3/uL (2.0-7.7); Basophil# 0.05 X10^3/uL; Basophil% 0.8 % (0-1); Eosinophil# 0.08 X10^3/uL; Eosinophils% 1.2 % (0-5); Hematocrit 41.6 % (40-54); Lymphocyte # 1.44 X10^3/ul (0.83-4.51); Lymphocyte % 22.2 % (19-41); Mean Corp Hgb Conc 36.1 g/dL (32-36); Mean Corpuscular Volume 91.6 fL (80-94); Mean Platelet Vol. 9.6 fl (6.2-12.0); Monocyte# 0.37 X10^3/uL; Monocyte% 5.7 % (0-10); NRBC Flagged by Analyzer 0 % (0-5); Neutrophil # 4.51 X10^3/uL (2.7-7.7); Neutrophil % 69.5 % (47-70); Platelet Count 180 K/mm3 (150-450); RBC Distribution Width CV 12.1 % (11.6-14.6); RBC Distribution Width SD 40.5 fl (35.1-43.9); Red Blood Count 4.54 M/mm3 (4.6-6.2); White Blood Count 6.5 K/mm3 (4.4-11.0)
[2021-10-12 10:48] LABS: Anion Gap 12 (5-15); BUN 17 mg/dL (7-18); BUN/Creat Ratio 13.7 RATIO (10-20); Calcium,Total 9.7 mg/dL (8.5-10.1); Chloride 103 mmol/L (98-107); Creatinine, Serum 1.24 mg/dL (0.70-1.30); EST Glomerular Filtration Rate 68 mL/min (>60); Est Glom Filt Rate - Afr Amer 83 mL/min (>60); Estimated Creatinine Clearance 86.05 ml/min; Glucose 155 mg/dL (74-106); Potassium 4.3 mmol/L (3.5-5.1); Sodium Level 136 mmol/L (136-145); Troponin-I HS (w/2H Reflex) 5 pg/mL (3.0-78.0)
[2021-10-12] MEDS: Aspirin 81 MG TAB.CHEW 243 MG PO (10:48)
--- NOTE | 2021-10-12 10:50 | ED.RN ---
Pt declined Nitro at this time.
--- NOTE | 2021-10-12 10:54 | RAD_ITS ---
STUDY: X-RAY CHEST REASON FOR EXAM: Male, 41 years old. Chest pain TECHNIQUE: Single AP portable view of the chest. COMPARISON: Comparison is made with prior study dated 02/02/2021. FINDINGS: EKG electrodes are seen. The lungs are clear and expanded. There is no demonstrated pleural abnormality. Normal size heart. Normal mediastinum and laly. Normal visualized pulmonary arteries. Normal visualized aortic arch and descending thoracic aorta. There are degenerative changes of the visualized thoracic spine. Normal visualized ribs, clavicles, and shoulders. There is no demonstrated abnormality of the visualized soft tissue structures of the upper abdomen. RAD/Chest 1 View (Portable) IMPRESSION: Normal x-ray examination of the chest. Electronically Signed: Cal Vanessa MD at 11:10 EDT ,
[2021-10-12 10:56] LABS: D-Dimer Quantitative (DVT/PE) 0.37 FEU/ug/m (0.27-0.49)
[2021-10-12 11:07] VITALS: BP 156/92; PULSE 77; RESP 22; O2SAT 99
--- NOTE | 2021-10-12 11:50 | ED.VIS.CHEST ---
HPI History of Present Illness Chief Complaint: Chest Pain Informant: patient Narrative Narrative: Patient is a 41-year-old male with history of hypertension, hyperlipidemia and diabetes mellitus presenting with near syncope and chest pain. Patient was at work today when he started feel lightheaded, sweaty and like he was going to pass out. He had tightness in the left side of his chest and pain rating to his bicep. He describes the pain in his bicep as throbbing. Patient actually drove home but at home he felt more short of breath and weak so he came to the emergency room. Patient took 81 mg of aspirin earlier today. Currently has a mild discomfort in his chest but the bicep pain has resolved and he states the discomfort in his chest is much better. Denies any swelling of his legs. Denies any history of DVT or PE. Has had 2 prior near syncopal/syncopal episodes over the past year. The first time was when he was diagnosed with diabetes and also had a heart cath per his which was normal. The second time his lisinopril was cut in half. Patient denies any recent medication changes. Denies any sick contacts. No other complaints at this time. Heart cath reviewed from 08/28/2020 which showed nonobstructive coronary arteries with 30% stenosis of the mid LAD, 50% stenosis of diagonal ostial and no significant disease in the other arteries. Normal left ventricular systolic function at that time. [facility] Medical History Essential (primary) hypertension Hyperglycemia Hyperlipidemia Home Medications atorvastatin 20 mg tablet 20 mg PO QHS #30 tabs 08/26/20 [Rx Last Taken Unknown] aspirin 81 mg tablet 81 mg PO DAILY 10/12/21 [History Last Taken Unknown] lisinopril 20 mg tablet 10 mg PO DAILY 10/12/21 [History Last Taken Unknown] metformin 500 mg 24 hr tablet,extended release 500 mg PO DAILY 10/12/21 [History Last Taken Unknown] ieqgvmep-wfulcjsi-ibpow acid 400 mcg-vit K 20 mcg-lycop 300 mcg tablet (Men's Multivitamin) 1 tab PO DAILY 10/12/21 [History Last Taken Unknown] zinc 50 mg tablet 50 mg PO DAILY 10/12/21 [History Last Taken Unknown] Allergy/AdvReac Type Severity Reaction Status Date / Time Penicillins Allergy Unknown Verified 10/12/21 09:39 Surgical History History of left heart catheterization (08/26/20) Social History Smoking Status: Never smoker alcohol intake: current alcohol intake frequency: holidays/special occasions only Alcohol type: beer ROS ROS ED Constitutional Constitutional ED: Reports sweats; Denies chills or fever(s) Eyes Eyes: Denies blurry vision or change in vision ENT ENT ED: Denies rhinorrhea or sore throat Cardiovascular Cardiovascular: Reports as per HPI and chest pain Respiratory/Chest Respiratory/Chest: Reports dyspnea; Denies cough or dyspnea on exertion Gastrointestinal Gastrointestinal: Denies abdominal pain, nausea or vomiting Genitourinary Genitourinary ED: Denies dysuria or hematuria Musculoskeletal Musculoskeletal: Reports other Details: left arm pain ; Denies arthralgias or myalgias Integumentary Denies rash Neurologic Neurologic: Reports weakness; Denies headache(s) or paresthesias Psychiatric Psychiatric: Denies anxiety Hematologic/Lymphatic Hematologic/Lymphatic: Denies easy bleeding or easy bruising EXAM Physical Exam Const Vital Signs: 10/12/21 09:39 10/12/21 09:50 10/12/21 11:07 Temperature 98.7 F Temperature Source Oral Pulse Rate 71 Respiratory Rate 15 Respiratory Effort Normal Non-Labored Blood Pressure 163/97 H Blood Pressure Mean 119 Pulse Ox 99 Oxygen Delivery Method Room Air Room Air 10/12/21 11:07 10/12/21 12:53 Temperature Temperature Source Pulse Rate 77 68 Respiratory Rate 22 H 19 H Respiratory Effort Blood Pressure 156/92 H 155/93 H Blood Pressure Mean 113 113 Pulse Ox 99 97 Oxygen Delivery Method Room Air Room Air Positive well nourished and well developed General Appearance ED: well developed and NAD HEENT Reports moist mucous membranes normocephalic; Negative for atraumatic Eyes PERRL and EOMs intact bilaterally Neck supple and no JVD Chest Wall inspection of chest normal and palpation of chest normal Resp normal respiratory effort and clear to auscultation bilaterally Cardio regular rate, regular rhythm and no murmurs GI normal to inspection, nondistended, normoactive bowel sounds, soft to palpation and non-tender Extremity normal to inspection General Extremety ED: Negative for edema, pulses abnormal or tenderness General Extremity: Negative for edema or pulses abnormal Neuro oriented x3 and CN's II-XII intact bilaterally Neuro Narrative: No focal deficits appreciated Psych mental status grossly normal Skin no rashes or lesions noted and no wounds Heart Score History: Moderately Suspicious ECG: Nonspecific Repolarization Age: </= 45 years Risk Factors: 1 or 2 Risk Factors Troponin: </= Normal Limit Score: 3 MDM MDM MDM Narrative Medical decision making narrative: Patient is evaluated for sudden onset of lightheadedness, sweating and near syncope. He has associated chest tightness. Patient does not have any acute EKG changes. He had a relatively normal cardiac catheterization 1 year ago. High sensitive troponin is normal at 5 and 4. Patient is low risk for PE and D-dimer is normal. I do not think a CTA is indicated. Chest x-ray does not show any acute process as interpreted by myself as well as radiology. Patient was ordered nitroglycerin however he declined stating the pain is improving and he does not want to have unless he really needs it. On repeat evaluation he no longer has any chest discomfort so nitroglycerin is not given. He did receive aspirin in the emergency room. Patient is feeling better on repeat evaluation. does now tell me that patient was outside in the sun all weekend and was not drinking much water at all. She thinks maybe he got dehydrated. He is given a bolus of IV fluids. Patient will be discharged home to follow-up with his primary care doctor. He is hemodynamically stable in the emergency room. I think he stable for further outpatient work-up. Lab Data Attestation: I reviewed the patient's lab results. Labs: Laboratory Results - last 24 hr 10/12/21 10/12/21 10/12/21 10:23 10:23 10:23 WBC 6.5 RBC 4.54 L Hgb 15.0 Hct 41.6 MCV 91.6 MCH 33.0 H MCHC 36.1 H RDW Std Deviation 40.5 RDW Coeff of Anand 12.1 Plt Count 180 MPV 9.6 Immature Gran % (Auto) 0.600 Neut % (Auto) 69.5 Lymph % (Auto) 22.2 [place] % (Auto) 5.7 Eos % (Auto) 1.2 Baso % (Auto) 0.8 Absolute Neuts (auto) 4.5 Absolute Lymphs (auto) 1.44 Nucleated RBC % 0 D-Dimer Quant (PE/DVT) 0.37 Sodium 136 Potassium 4.3 Chloride 103 Carbon Dioxide 21.0 Anion Gap 12 BUN 17 Creatinine 1.24 Estim Creat Clear Calc 86.05 Est GFR (MDRD) Af Amer 83 Est GFR (MDRD) Non-Af 68 BUN/Creatinine Ratio 13.7 Glucose 155 H Calcium 9.7 Troponin I High Sens 5 10/12/21 12:50 WBC RBC Hgb Hct MCV MCH MCHC RDW Std Deviation RDW Coeff of Anand Plt Count MPV Immature Gran % (Auto) Neut % (Auto) Lymph % (Auto) [place] % (Auto) Eos % (Auto) Baso % (Auto) Absolute Neuts (auto) Absolute Lymphs (auto) Nucleated RBC % D-Dimer Quant (PE/DVT) Sodium Potassium Chloride Carbon Dioxide Anion Gap BUN Creatinine Estim Creat Clear Calc Est GFR (MDRD) Af Amer Est GFR (MDRD) Non-Af BUN/Creatinine Ratio Glucose Calcium Troponin I High Sens 4 Radiography Diagnostic Testing: Clinical Impression(s) from Imaging Studies Chest X-Ray 10/12/21 10:54 IMPRESSION: Normal x-ray examination of the chest. Electronically Signed: Cal Vanessa MD at 11:10 EDT , Rhythm Strip Rhythm Strip: Sinus Rhythm Rate: 68 Ectopy: None EKG Initial EKG: Attestation: I personally reviewed and interpreted this EKG as follows: Interpretation: Sinus Rhythm Comments: Normal sinus rhythm at a rate of 68 Normal axis Normal intervals Normal ST segment No change compared to prior EKG on 02/02/2021 Discharge Plan Triage Chief Complaint: Chest Pain ED Provider: Gabrielle Alas Dx/Rx/DC Orders Clinical Impression: Near syncope, Essential (primary) hypertension, Chest pain Instructions: ED Chest Pain, Uncertain Cause, ED Near-Fainting, Uncertain Cause Prescriptions: No Action atorvastatin 20 mg Tablet 20 mg PO QHS Qty: 30 0RF zinc 50 mg Tablet 50 mg PO DAILY aspirin 81 mg Tablet 81 mg PO DAILY Men's Multivitamin 400-20-300 mcg Tablet 1 tab PO DAILY lisinopril 20 mg tablet 10 mg PO DAILY metformin 500 mg tablet,ER meir.retention 24 hr 500 mg PO DAILY Primary Care Provider: Ranjith Barney Referrals: Ranjith Barney MD [Primary Care Provider] - Disposition Disposition: Home, Self Care
[2021-10-12 12:28] LABS: Reflex Troponin-HS? (from REC) Y
[2021-10-12] MEDS: 0.9% Normal Saline 1,000 ML 999 ML IV (12:52)
[2021-10-12 12:53] VITALS: BP 155/93; PULSE 68; RESP 19; O2SAT 97
[2021-10-12 13:15] LABS: Troponin-I HS 4 pg/mL (3.0-78.0)
[2021-10-12 15:07] VITALS: BP 144/84
== END 2021-10-12 15:09 | disposition home or self-care (01) ==
PROVIDERS: Emergency Provider Emergency Medicine; PCP Family Medicine; Visit Provider Emergency Medicine
DX: R55 Syncope and collapse (principal); E11.9 Type 2 diabetes mellitus without complications; R07.9 Chest pain, unspecified; I25.10 Atherosclerotic heart disease of native coronary artery without angina pectoris; I10 Essential (primary) hypertension; E78.5 Hyperlipidemia, unspecified; Z79.82 Long term (current) use of aspirin; Z79.84 Long term (current) use of oral hypoglycemic drugs; Z79.899 Other long term (current) drug therapy
CPT/HCPCS: 71045; 80048; 84484; 85025; 85379; 93005; 96360; 96361; 99285; J7030; A4216

== ENCOUNTER 2022-04-01 06:58 | Emergency (ER) | payer BC, SELFPAY ==
[2022-04-01 06:59] VITALS: BP 185/107; PULSE 65; RESP 20; TEMP 36.2; O2SAT 100; BMI 31.8
--- NOTE | 2022-04-01 07:15 | EKG12_ITS ---
Test Reason : Blood Pressure : / mmHG Vent. Rate : 066 BPM Atrial Rate : 066 BPM P-R Int : 138 ms QRS Dur : 100 ms QT Int : 398 ms P-R-T Axes : 045 042 -03 degrees QTc Int : 417 ms Normal sinus rhythm Possible Inferior infarct , age undetermined Abnormal ECG Confirmed by JERMAINE BERGER, IFEOMA ([id number]), make up editor KAREY KIRBY ([id number]) on 04/05/2022 9:12:24 AM Referred By: HAIDER Confirmed By:IFEOMA DEAN MD
--- NOTE | 2022-04-01 07:16 | ED.VIS.CHEST ---
HPI History of Present Illness Chief Complaint: Chest Pain Informant: patient and spouse/S.O. Onset/Context/Timing Onset: Today (0545) Activity at onset: sudden Timing: Continuous Quality: Positive for Pressure and Tightness Location: Left Chest Current Severity: Mild Maximum Severity: Moderate Worsened By: Nothing Relieved By: Nothing Associated Symptoms: Positive for Dyspnea; Negative for Nausea, Vomiting, Diaphoresis, Cough, Fever, Lightheadedness, Acid Reflux or Palpitations Narrative Narrative: Presents with chest pain started at rest at 0545. This was left-sided scribed as pressure and associate with shortness of breath. There is no diaphoresis, nausea or radiation of the discomfort. Patient's been seen several times for this. Patient states he had a cardiac cath which was normal. Review of Dr. Huynh's note indicates that the cardiac cath was not normal. Findings are: LEFT MAIN: Angiographically normal LEFT ANTERIOR DESCENDING ARTERY: MID LAD: 30 % Stenosis DIAGONAL 1: Ostial - 50 % Stenosis CIRCUMFLEX ARTERY: No significant disease noted RAMUS: No significant disease noted RIGHT CORONARY ARTERY: No significant disease noted Patient is still having discomfort. Patient did take aspirin. Patient has risk factors i.e. hypertension, diabetes hypercholesterolemia after reviewing prior records. Patient's cholesterol is elevated, HDL is low and triglycerides are high. Patient is on atorvastatin. Patient does have intolerance to greasy and fried foods and also broccoli. Patient has never had a EGD. Patient denies black or maroon-colored stool. Patient denies change in color, consistency or caliber of his stool. Patient took Advil with no improvement. He did not try an acids. Patient denies history of VTE. Patient has no risk factors. Patient denies leg pain, swelling discoloration. Prior Similar Symptoms: Yes Recent Illness/Hospitalization: No CVD Risk Factors: Positive for Hypertension, Diabetes and Hypercholesterolemia; Negative for Smoking PE Risk Factors: Negative for Recent Travel/Surgery, Recent Immobilization, Prior DVT or PE, Cancer or OCP + Smoking + >/=35 TAD Risk Factors: Positive for Hypertension; Negative for Marfan's Syndrome or Family History [facility] Medical History Essential (primary) hypertension Hyperglycemia Hyperlipidemia Home Medications atorvastatin 20 mg tablet 20 mg PO QHS #30 tabs 08/26/20 [Rx Last Taken Unknown] aspirin 81 mg tablet 81 mg PO DAILY 10/12/21 [History Last Taken Unknown] metformin 500 mg 24 hr tablet,extended release 500 mg PO DAILY 10/12/21 [History Last Taken Unknown] ptnonbuv-tnxukfoh-iabnn acid 400 mcg-vit K 20 mcg-lycop 300 mcg tablet (Men's Multivitamin) 1 tab PO DAILY 10/12/21 [History Last Taken Unknown] zinc 50 mg tablet 50 mg PO DAILY 10/12/21 [History Last Taken Unknown] quinapril 10 mg tablet 10 mg PO DAILY 04/01/22 [History Last Taken Unknown] Allergy/AdvReac Type Severity Reaction Status Date / Time Penicillins Allergy Unknown Verified 04/01/22 07:03 Surgical History History of left heart catheterization (08/26/20) Social History (Updated 04/01/22 @ 07:[address] Zachery Donaldson MD) household members: spouse and children Smoking Status: Never smoker alcohol intake: current alcohol intake frequency: holidays/special occasions only Alcohol type: beer substance use type: does not use ROS ROS ED Constitutional Constitutional ED: Denies chills, fever(s), subjective, sweats or weight loss Eyes Eyes: Reports none ENT ENT ED: Denies ear pain, rhinorrhea or sore throat Cardiovascular Cardiovascular: Reports as per HPI; Denies orthopnea or paroxysmal nocturnal dyspnea Respiratory/Chest Respiratory/Chest: Reports dyspnea; Denies cough, dyspnea on exertion, orthopnea or paroxysmal nocturnal dyspnea Gastrointestinal Gastrointestinal: Denies abdominal pain, constipation, diarrhea, melena, nausea or vomiting Genitourinary Genitourinary ED: Denies dysuria, hematuria or urinary frequency Musculoskeletal Musculoskeletal: Reports other Details: No radiation of discomfort to shoulders, arm or back ; Denies arthralgias, back pain or myalgias Integumentary Denies rash Psychiatric Psychiatric: Denies depression Endocrine Endocrinology: Denies cold intolerance or heat intolerance Hematologic/Lymphatic Hematologic/Lymphatic: Denies easy bleeding or easy bruising EXAM Physical Exam Const Vital Signs: 04/01/22 06:59 04/01/22 06:59 04/01/22 07:32 Temperature 97.2 F L Temperature Source Temporal Pulse Rate 65 Respiratory Rate 20 H Respiratory Effort Short of Breath Respiratory Pattern Tachypnea Blood Pressure 185/107 H Blood Pressure Mean 133 Pulse Ox 100 96 Oxygen Delivery Method Room Air Room Air 04/01/22 09:14 Temperature Temperature Source Pulse Rate 72 Respiratory Rate 16 Respiratory Effort Respiratory Pattern Blood Pressure 151/88 H Blood Pressure Mean 109 Pulse Ox 97 Oxygen Delivery Method Room Air Positive well nourished, well developed and obese General Appearance ED: well developed and NAD; Negative for pallor Nutritional Appearance: obese HEENT Reports moist mucous membranes HEENT Narrative: Nares patent. Ears normal. Mucosa moist. normocephalic and atraumatic Eyes PERRL and EOMs intact bilaterally General Eye ED: Negative for pale conjunctiva or scleral icterus Neck no lymphadenopathy, supple and no JVD Neck Narrative: Trachea is midline. There is no dysphonia. Chest Wall inspection of chest normal and palpation of chest normal Resp normal respiratory effort and clear to auscultation bilaterally Cardio regular rate, regular rhythm, S1 normal heart sound, S2 normal heart sound and no murmurs GI normal to inspection, nondistended, normoactive bowel sounds, soft to palpation, non-tender, non-distended and no masses; Negative for hepatosplenomegaly Back/Spine no CVA tenderness and no thoracic nor lumbar tenderness Back/Spine Narrative: Inspection is normal. Extremity normal to inspection Extremity Narrative: There is no asymmetry, swelling, discoloration, leg vein distention, palpable cords or tenderness along the distribution of the deep venous system. Neuro oriented x3, CN's II-XII intact bilaterally and no sensory deficits noted Sensorium / Orientation: awake and alert Psych mental status grossly normal Skin no rashes or lesions noted and no wounds General Skin Exam: Negative for jaundice or pallor Heart Score History: Slightly/Non-Suspicious ECG: Nonspecific Repolarization Age: </= 45 years Risk Factors: >/= 3 Risk Factors or History of CAD Score: 3 MDM MDM MDM Narrative Medical decision making narrative: Review of prior cardiac catheterization reveals the patient did not have a clean cardiac cath. Patient has narrowing which is insignificant. There is 30% stenosis of the mid LAD and 50% stenosis of ostial first diagonal.. Since patient has more than 1 risk factor will obtain EKG, troponin and 2-hour delta troponin to evaluate for cardiac ischemia. Also need to entertain possibility of biliary disease. If work-up is unremarkable will refer to gastroenterology, Dr. Panchal. D-dimer was not obtained since patient is PERC negative. Chest x-ray was not obtained because he has normal respiratory effort with no auscultatory findings and several prior chest x-rays which were negative. and patient were informed that both tests were negative. Recommend follow-up with GI. ALT ReSound of the gallbladder was not obtained since hepatic panel and lipase were normal and there is no tenderness right upper quadrant nor does patient have a clinical Hung sign. Lab Data Attestation: I reviewed the patient's lab results. Lab results narrative: CBC and differential are normal. Basic metabolic panel is unremarkable. Liver profile and lipase are normal. First troponin is 4 which is normal. 2-hour is pending. 2-hour troponin is 6. Delta is 2. Both readings are less than 7 based on algorithm/chart this is 100% negative predictive value. Since this is not due to cardiac chest pain will have patient follow-up with GI to evaluate for causes other than cardiac. Labs: Laboratory Results - last 24 hr 04/01/22 04/01/22 04/01/22 06:55 06:55 06:55 WBC 7.8 RBC 5.04 Hgb 15.4 Hct 44.8 MCV 88.9 MCH 30.6 MCHC 34.4 RDW Std Deviation 38.8 RDW Coeff of Anand 12.0 Plt Count 237 MPV 9.5 Immature Gran % (Auto) 0.400 Neut % (Auto) 70.0 Lymph % (Auto) 20.6 [place] % (Auto) 7.7 Eos % (Auto) 0.8 Baso % (Auto) 0.5 Absolute Neuts (auto) 5.5 Absolute Lymphs (auto) 1.61 Nucleated RBC % 0 Sodium 135 L Potassium 4.0 Chloride 100 Carbon Dioxide 24.0 Anion Gap 11 BUN 12 Creatinine 1.26 Estim Creat Clear Calc 84.68 Est GFR (MDRD) Af Amer 81 Est GFR (MDRD) Non-Af 67 BUN/Creatinine Ratio 9.5 L Glucose 154 H Calcium 10.0 Total Bilirubin 0.80 Direct Bilirubin 0.24 AST 20 ALT 35 Alkaline Phosphatase 56 Troponin I High Sens 4 Total Protein 8.3 H Albumin 4.5 Globulin 3.8 Lipase 210 04/01/22 09:13 WBC RBC Hgb Hct MCV MCH MCHC RDW Std Deviation RDW Coeff of Anand Plt Count MPV Immature Gran % (Auto) Neut % (Auto) Lymph % (Auto) [place] % (Auto) Eos % (Auto) Baso % (Auto) Absolute Neuts (auto) Absolute Lymphs (auto) Nucleated RBC % Sodium Potassium Chloride Carbon Dioxide Anion Gap BUN Creatinine Estim Creat Clear Calc Est GFR (MDRD) Af Amer Est GFR (MDRD) Non-Af BUN/Creatinine Ratio Glucose Calcium Total Bilirubin Direct Bilirubin AST ALT Alkaline Phosphatase Troponin I High Sens 6 Total Protein Albumin Globulin Lipase EKG Initial EKG: Attestation: I personally reviewed and interpreted this EKG as follows: Interpretation: Sinus Rhythm (Ventricular rate 66. MN intervals 138 ms. QS duration 100 ms. QT duration 398 ms. [place] is normal. There are ST changes and T wave changes in the inferior leads. This is unchanged from October 12, 2021.) Prior: Unchanged Discharge Plan Triage Chief Complaint: Chest Pain ED Provider: Zachery Donaldson Dx/Rx/DC Orders Clinical Impression: Pressure in left side of chest, History of hypertension, History of hyperlipidemia, Hx of type 2 diabetes mellitus Instructions: ED Chest Pain, Noncardiac Prescriptions: No Action atorvastatin 20 mg Tablet 20 mg PO QHS Qty: 30 0RF zinc 50 mg Tablet 50 mg PO DAILY aspirin 81 mg Tablet 81 mg PO DAILY Men's Multivitamin 400-20-300 mcg Tablet 1 tab PO DAILY metformin 500 mg tablet,ER meir.retention 24 hr 500 mg PO DAILY quinapril 10 mg tablet 10 mg PO DAILY Primary Care Provider: Ranjith Barney Referrals: Ranjith Barney MD [Primary Care Provider] - Pepe Panchal DO [Med Staff - Active Staff] - 1-2 Weeks Disposition Disposition: Home, Self Care
[2022-04-01 07:32] VITALS: O2SAT 96
[2022-04-01 07:36] LABS: Absolute Lymphocyte Count 1.61 X10^3/uL (0.83-4.51); Absolute Neutrophil Count 5.5 X10^3/uL (2.0-7.7); Basophil# 0.04 X10^3/uL; Basophil% 0.5 % (0-1); Eosinophil# 0.06 X10^3/uL; Eosinophils% 0.8 % (0-5); Hematocrit 44.8 % (40-54); Hemoglobin 15.4 g/dL (13.0-16.5); Lymphocyte # 1.61 X10^3/ul (0.83-4.51); Lymphocyte % 20.6 % (19-41); Mean Corp Hgb Conc 34.4 g/dL (32-36); Mean Corpuscular Hgb 30.6 pg (27.0-32.0); Mean Corpuscular Volume 88.9 fL (80-94); Mean Platelet Vol. 9.5 fl (6.2-12.0); Monocyte% 7.7 % (0-10); NRBC Flagged by Analyzer 0 % (0-5); Neutrophil # 5.47 X10^3/uL (2.7-7.7); Platelet Count 237 K/mm3 (150-450); RBC Distribution Width SD 38.8 fl (35.1-43.9); Red Blood Count 5.04 M/mm3 (4.6-6.2); White Blood Count 7.8 K/mm3 (4.4-11.0)
[2022-04-01 07:56] LABS: AST(SGOT) 20 U/L (15-37); Alanine Aminotransfer ALT/SGPT 35 U/L (16-61); Albumin, Serum 4.5 g/dL (3.2-5.0); Alkaline Phosphatase 56 U/L (45-117); Bilirubin, Direct 0.24 mg/dL (0.00-0.30); Globulin 3.8 g/dL (2.2-4.2); Protein, Total 8.3 g/dL (6.4-8.2)
[2022-04-01 08:09] LABS: Anion Gap 11 (5-15); BUN 12 mg/dL (7-18); BUN/Creat Ratio 9.5 RATIO (10-20); Chloride 100 mmol/L (98-107); Creatinine, Serum 1.26 mg/dL (0.70-1.30); EST Glomerular Filtration Rate 67 mL/min (>60); Est Glom Filt Rate - Afr Amer 81 mL/min (>60); Estimated Creatinine Clearance 84.68 ml/min; Glucose 154 mg/dL (74-106); Lipase 210 U/L (73-393); Sodium Level 135 mmol/L (136-145); Troponin-I HS (w/2H Reflex) 4 pg/mL (3.0-78.0)
[2022-04-01 09:14] VITALS: BP 151/88; PULSE 72; RESP 16; O2SAT 97
[2022-04-01 09:33] LABS: Reflex Troponin-HS? (from REC) Y
[2022-04-01 09:54] LABS: Troponin-I HS 6 pg/mL (3.0-78.0)
[2022-04-01 11:04] VITALS: BP 138/72; PULSE 71; RESP 15; O2SAT 98
== END 2022-04-01 11:08 | disposition home or self-care (01) ==
PROVIDERS: Emergency Provider Emergency Medicine; PCP Family Medicine; Visit Provider Emergency Medicine
DX: R07.89 Other chest pain (principal); E11.9 Type 2 diabetes mellitus without complications; E78.5 Hyperlipidemia, unspecified; R06.02 Shortness of breath; I10 Essential (primary) hypertension; E66.9 Obesity, unspecified
CPT/HCPCS: 36415; 80048; 80076; 83690; 84484; 85025; 93005; 99285; A4216

== ENCOUNTER → 2022-04-02 | Outpatient (CLI) | payer BC, SELFPAY ==
[2022-04-02 17:36] LABS: Erythrocyte Sedimentation Rate 11 mm/hr (0-20)
[2022-04-02 18:08] LABS: Vitamin B12 754 pg/mL (211-911)
[2022-04-02 18:16] LABS: CRP 3.45 mg/L (0.0-3.0); Ferritin 573 ng/mL (26-388)
[2022-04-05 16:09] LABS: ANTINUCLEAR ANTIBODIES DIRECT Negative (Negative)
[2022-04-05 17:02] LABS: Alpha Antitrypsin Serum 95 mg/dL (101-187)
[2022-04-05 17:05] LABS: ANA Table P; Anti-Centromere B Ab NPN
[2022-04-07 07:08] LABS: Endomysial Antibody IgA Negative (Negative); Immunoglobulin A 413 mg/dL (90-386)
[2022-04-09 21:25] LABS: Copper, Serum or Plasma 107 ug/dL (69-132); t-Transglutaminase IgA <2 U/mL (0-3)
== END | disposition home or self-care (01) ==
LOC: MFPLAB 16:26
PROVIDERS: PCP Family Medicine; Referring Provider Family Medicine; Visit Provider Family Medicine
DX: M25.50 Pain in unspecified joint (principal); R19.7 Diarrhea, unspecified
CPT/HCPCS: 36415; 82103; 82525; 82607; 82728; 82746; 82784; 83516; 85652; 86038; 86140; 86225; 86235; 86255

== ENCOUNTER → 2022-04-03 | Outpatient (CLI) | payer BC, SELFPAY ==
[2022-04-07 16:48] LABS: Calprotectin, Stool 75 ug/g (0-120)
[2022-04-09 19:21] LABS: Pancreatic Elastase, Fecal 134 (>200)
== END | disposition home or self-care (01) ==
PROVIDERS: PCP Family Medicine; Visit Provider Surgery
DX: K58.9 Irritable bowel syndrome, unspecified (principal)
CPT/HCPCS: 82653; 83630; 83993

== ENCOUNTER → 2022-04-07 | Outpatient (CLI) | payer BC, SELFPAY ==
--- NOTE | 2022-04-07 07:37 | RAD_ITS ---
PROCEDURE: Air contrast Upper GI series with Small Bowel Follow Through DATE OF EXAMINATION: 04/07/2022. INDICATION: Male, 41 years old. Recurrent diarrhea and rapid transit. FLUOROSCOPY TIME (if supplied): (0:45) minutes/seconds. 25 images were submitted. TECHNIQUE: Radiographic and fluoroscopic images of the distal esophagus, stomach, and entire small intestine were obtained following the oral ingestion of barium. COMPARISON: None. FINDINGS: The commercial pilot film of the abdomen demonstrates a normal bowel gas pattern. There are no abnormal calcifications or organomegaly demonstrated. The visualized osseous structures are normal. The esophagus is unremarkable. No evidence of obstruction. No evidence of gastroesophageal reflux. The stomach and duodenum are unremarkable. No evidence of ulceration. No mass lesion is seen. A single contrast small bowel follow through exam demonstrates the small bowel to have no evidence for stricture, ulceration or mass. The transit time is normal at 120 minutes. RAD/Upper GI/w Small Bowel IMPRESSION: 1. Unremarkable air contrast upper GI series and small bowel follow-through examination. Electronically Signed: Cal Vanessa MD at 12:36 EST ,
== END | disposition home or self-care (01) ==
PROVIDERS: PCP Family Medicine; Visit Provider Family Medicine
DX: R19.7 Diarrhea, unspecified (principal)
CPT/HCPCS: 74246; 74248

== ENCOUNTER → 2022-04-09 | Outpatient (CLI) | payer BC, SELFPAY ==
[2022-04-09 17:41] LABS: Erythrocyte Sedimentation Rate 5 mm/hr (0-20)
[2022-04-09 17:53] LABS: CRP < 2.90 mg/L (0.0-3.0); LDH 170 U/L (87-241)
[2022-04-12 13:07] LABS: Anti-Centromere B Ab <0.2 AI (0.0-0.9); Anti-Chromatin <0.2 AI (0.0-0.9); Anti-Jo <0.2 AI (0.0-0.9); Anti-Scleroderma-70 AB <0.2 AI (0.0-0.9); RNP Ab 0.2 AI (0.0-0.9); SJOGREN'S Anti-SS-A test < 0.2 AI (0.0-0.9); SJOGREN'S Anti-SS-B test < 0.2 AI (0.0-0.9); Smith Ab <0.2 AI (0.0-0.9)
[2022-04-12 14:25] LABS: Anti-dsDNA Ab <1 IU/mL (0-9)
[2022-04-12 15:08] LABS: Endomysial Antibody IgA Negative (Negative)
[2022-04-12 20:37] LABS: Immunoglobulin A 269 mg/dL (90-386); t-Transglutaminase IgA <2 U/mL (0-3)
[2022-04-16 20:07] LABS: Albumin 4.4 g/dL (2.9-4.4); Alpha-1-Globulins 0.1 g/dL (0.0-0.4); Alpha-2-Globulins 0.8 g/dL (0.4-1.0); Immunoglobulin A 278 mg/dL (90-386); Immunoglobulin G 915 mg/dL (603-1613); Immunoglobulin M 107 mg/dL (20-172); PROEL- TOTAL PROTEIN 7.6 g/dL (6.0-8.5)
[2022-04-16 20:27] LABS: Cytoplasmic Ab (C-ANCA) <1:20 titer (Neg:<1:20); Immunoglobulin E 11 IU/mL (6-495); Perinuclear Ab (P-ANCA) <1:20 titer (Neg:<1:20)
== END | disposition home or self-care (01) ==
LOC: LAB 16:28
PROVIDERS: PCP Family Medicine; Visit Provider Internal Medicine Gastroenterology
DX: K58.9 Irritable bowel syndrome, unspecified (principal)
CPT/HCPCS: 36415; 82784; 82785; 83516; 83615; 84165; 85652; 86140; 86225; 86235; 86255; 86256; 86334

== ENCOUNTER 2022-04-15 16:01 | Outpatient (CLI) | payer BC, SELFPAY | END 2022-04-15 23:59 | disposition home or self-care (01) | PROVIDERS: PCP Family Medicine; Referring Provider Family Medicine; Visit Provider Family Medicine | DX: K86.81 Exocrine pancreatic insufficiency (principal) | CPT/HCPCS: 36415 ==

== ENCOUNTER 2022-05-09 22:01 | Emergency (ER) | payer BC, SELFPAY ==
[2022-05-09 22:01] VITALS: BP 168/88; PULSE 89; RESP 15; TEMP 37.5; O2SAT 99; BMI 30.2
--- NOTE | 2022-05-09 22:13 | CT_ITS ---
INDICATION: Left lower quadrant pain. EXAMINATION: CT ABDOMEN AND PELVIS WITH CONTRAST TECHNIQUE: Helically acquired images were obtained of the abdomen and pelvis following IV contrast. A radiation dose optimization technique was used for this scan. IV Contrast dosage and agent: 100 mL [id number]. Oral contrast: None. COMPARISON: None. FINDINGS: LOWER CHEST: Lung bases are clear. No cardiomegaly or pericardial effusion. No coronary artery calcification. LIVER: Homogeneous. No focal mass. GALLBLADDER AND BILIARY TREE: No calcified gallstones. No gallbladder distension or wall edema. No intra- or extrahepatic biliary ductal dilation. PANCREAS: No focal cystic or solid mass. SPLEEN: Normal size without focal cystic or solid mass. ADRENAL GLANDS: No nodules. KIDNEYS AND URETERS: Normal renal size and position. No hydronephrosis. PERITONEUM: Metallic coils in the right upper quadrant mesentery. No ascites or free air. No other fluid collection. BOWEL: There is significant descending colon wall thickening, increased mucosal enhancement, adjacent mesenteric inflammation small amount of free fluid layering within the left paracolic gutter extending to the pelvis. Diverticulosis is present at this segment of colon and within the sigmoid colon. Segment measures up to 9.2 cm in length. No evidence of perforation or abscess. LYMPH NODES: No enlarged mesenteric or retroperitoneal lymph nodes. VESSELS: Aorta is non-dilated. No dissection. URINARY BLADDER: Unremarkable. No gas or stone. REPRODUCTIVE ORGANS: No pelvic masses. Mildly prominent prostate gland. ABDOMINAL WALL: No discrete abdominal or pelvic wall hernia. BONES: No lytic or blastic abnormality. Unremarkable for age. CT/Abdomen/Pelvis W IV Cont ONLY IMPRESSION: Findings suggest acute descending colon diverticulitis. Electronically Signed: Porfirio Patel MD at 23:50 EST ,
--- NOTE | 2022-05-09 22:14 | ED.VIS.GI ---
HPI HPI - GI History of Present Illness Chief Complaint: Abd Pain Informant: patient and spouse/S.O. Narrative Narrative: Patient presents with abdominal pain. He states he has had this pain off and on in the past but is never been lasting as long as it has today. It started when he woke up this morning. The other new feature is that he had a fever of 101 today. He has never had colonoscopy. He has no history of diverticulitis. But he woke up he had pain in the left lower quadrant. Nothing seems to make it better or worse. He is moving his bowels normally. He is urinating normally. No blood. No pain with urination. No numbness tingling distally. He is not getting nauseated. No cough or chest pain for which she was here about 10 days ago. This is a very different complaint and not related to his prior visit. He has no prior abdominal surgeries. [facility] Medical History Essential (primary) hypertension Hyperglycemia Hyperlipidemia Polyarthralgia Home Medications atorvastatin 20 mg tablet 20 mg PO QHS #30 tabs 08/26/20 [Rx Last Taken Unknown] aspirin 81 mg tablet 81 mg PO DAILY 10/12/21 [History Last Taken Unknown] metformin 500 mg 24 hr tablet,extended release 500 mg PO DAILY 10/12/21 [History Last Taken Unknown] beknqyku-geasgbfz-giixi acid 400 mcg-vit K 20 mcg-lycop 300 mcg tablet (Men's Multivitamin) 1 tab PO DAILY 10/12/21 [History Last Taken Unknown] zinc 50 mg tablet 50 mg PO DAILY 10/12/21 [History Last Taken Unknown] quinapril 10 mg tablet 10 mg PO DAILY 04/01/22 [History Last Taken Unknown] methylprednisolone 4 mg tablets in a dose pack (Medrol (Chago)) 4 mg PO DAILY #21 tabs 04/29/22 [Rx Last Taken Unknown] ciprofloxacin HCl 500 mg tablet 500 mg PO BID #14 TABLETS 05/10/22 [Rx Last Taken Unknown] hydrocodone-acetaminophen 5-325mg 5mg-325mg 1 tab PO Q6H PRN PRN Pain 3 days #10 TABLETS 05/10/22 [Rx Last Taken Unknown] metronidazole 500 mg tablet 500 mg PO TID #21 tabs 05/10/22 [Rx Last Taken Unknown] ondansetron 4 mg disintegrating tablet 4 mg PO Q8H PRN PRN Nausea #10 tabs 05/10/22 [Rx Last Taken Unknown] Allergy/AdvReac Type Severity Reaction Status Date / Time Penicillins Allergy Unknown Verified 05/09/22 22:05 Surgical History History of left heart catheterization (08/26/20) Social History household members: spouse and children Smoking Status: Never smoker alcohol intake: current alcohol intake frequency: holidays/special occasions only Alcohol type: beer substance use type: does not use ROS ROS ED Constitutional Constitutional ED: Reports fever(s) ENT ENT ED: Denies rhinorrhea or sore throat Cardiovascular Cardiovascular: Denies chest pain or palpitations Respiratory/Chest Respiratory/Chest: Denies cough or dyspnea Gastrointestinal Gastrointestinal: Reports abdominal pain; Denies constipation, diarrhea, melena, nausea or vomiting Genitourinary Genitourinary ED: Denies dysuria, hematuria or urinary frequency Musculoskeletal Musculoskeletal: Denies back pain Integumentary Denies rash Neurologic Neurologic: Denies paresthesias or weakness Endocrine Endocrinology: Denies polydipsia or polyuria Hematologic/Lymphatic Hematologic/Lymphatic: Denies easy bleeding or easy bruising Allergic/Immunologic Allergic/Immunologic ED: Denies urticaria EXAM Physical Exam Narrative Exam Narrative: Patient is lying in bed. He looks reasonably comfortable. Nontoxic. HEENT shows normal mucous membranes. Eyes show no icterus Lungs are clear bilaterally no pain with a deep breath. Heart is regular without murmur gallop or rub. Peripheral pulses are equal. Abdomen is soft nondistended. Bowel sounds are normal. He does have some tenderness toward the left lower quadrant but the rest of the abdomen is completely benign. He has no bump tenderness. No guarding or rebound. No sign of hernia including with straining. shows no suprapubic or CVA tenderness. Extremities show no edema. Skin shows no rash or vesicles in the area of discomfort. Const Vital Signs: 05/09/22 22:01 05/10/22 00:30 Temperature 99.5 F H Temperature Source Temporal Pulse Rate 89 72 Respiratory Rate 15 18 Blood Pressure 168/88 H 151/88 H Blood Pressure Mean 114 Pulse Ox 99 100 Oxygen Delivery Method Room Air MDM MDM MDM Narrative Medical decision making narrative: Depend interpretation the patient's CT of the abdomen with IV contrast shows some stranding and thickening around the descending colon and proximal sigmoid. I do not see any free air or abscess. Reading is similar per radiology 9 White count is elevated at 13.4. Rest of CBC is essentially normal. Electrolytes look normal including renal function. Glucose is mildly elevated at 154. Lipase was also checked as he is on a pancreatic supplement. Lipase was normal. His Tums are more consistent with diverticulitis than pancreatitis. Patient has allergies to penicillins. With possible fever, white count, and onset of symptoms over just 1 day, I will initiate antibiotics. Although we do not usually use Cipro as much anymore it still appropriate therapy for this. We will use Cipro with Flagyl. I also talked to them about a very bland diet and starting off with a liquid diet as this is a very significant portion of recovering from diverticulitis. We discussed reasons to return. He can follow-up with his primary physician or pasting inspector. Lab Data Attestation: I reviewed the patient's lab results. Labs: Laboratory Results - last 24 hr 05/09/22 05/09/22 22:22 22:22 WBC 13.4 H RBC 4.64 Hgb 14.1 Hct 41.8 MCV 90.1 MCH 30.4 MCHC 33.7 RDW Std Deviation 43.1 RDW Coeff of Anand 13.2 Plt Count 162 MPV 9.2 Immature Gran % (Auto) 0.500 Neut % (Auto) 80.9 H Lymph % (Auto) 8.1 L Parke % (Auto) 9.7 Eos % (Auto) 0.4 Baso % (Auto) 0.4 Absolute Neuts (auto) 10.9 H Absolute Lymphs (auto) 1.09 Nucleated RBC % 0 Sodium 137 Potassium 3.7 Chloride 104 Carbon Dioxide 25.0 Anion Gap 8 BUN 9 Creatinine 0.93 Estim Creat Clear Calc 114.73 Est GFR (MDRD) Af Amer 115 Est GFR (MDRD) Non-Af 95 BUN/Creatinine Ratio 9.7 L Glucose 154 H Calcium 9.7 Lipase 117 Radiography Diagnostic Testing: Clinical Impression(s) from Imaging Studies Abdomen/Pelvis CT 05/09/22 22:13 IMPRESSION: Findings suggest acute descending colon diverticulitis. Electronically Signed: Porfirio Patel MD at 23:50 EST , Discharge Plan Triage Chief Complaint: Abd Pain ED Provider: Lavell Knapp Dx/Rx/DC Orders Clinical Impression: Diverticulitis Instructions: ED Diverticulitis Prescriptions: New ciprofloxacin HCl [ciprofloxacin HCl] 500 mg tablet 500 mg PO BID Qty: 14 0RF ondansetron [ondansetron] 4 mg tablet,disintegrating 4 mg PO Q8H PRN PRN (Reason: Nausea) Qty: 10 0RF hydrocodone-acetaminophen [hydrocodone-acetaminophen] 5-325 mg tablet 1 tab PO Q6H PRN PRN (Reason: Pain) 3 Days Qty: 10 0RF metronidazole 500 mg tablet 500 mg PO TID Qty: 21 0RF No Action methylprednisolone [Medrol (Chago)] 4 mg tablets,dose pack 4 mg PO DAILY Qty: 21 0RF Rx Instructions: one tablet by mouth as directed atorvastatin 20 mg Tablet 20 mg PO QHS Qty: 30 0RF zinc 50 mg Tablet 50 mg PO DAILY aspirin 81 mg Tablet 81 mg PO DAILY Men's Multivitamin 400-20-300 mcg Tablet 1 tab PO DAILY metformin 500 mg tablet,ER meir.retention 24 hr 500 mg PO DAILY quinapril 10 mg tablet 10 mg PO DAILY Primary Care Provider: Ranjith Barney Referrals: Ranjith Barney MD [Primary Care Provider] - 3-5 Days if not improving Friend,DO Pepe [Med Staff - Active Staff] - 3-5 Days if not improving Disposition Disposition: Home, Self Care Discharge Date/Time: 05/10/22 00:33
[2022-05-09 22:27] LABS: Absolute Lymphocyte Count 1.09 X10^3/uL (0.83-4.51); Absolute Neutrophil Count 10.9 X10^3/uL (2.0-7.7); Basophil# 0.05 X10^3/uL; Basophil% 0.4 % (0-1); Eosinophil# 0.06 X10^3/uL; Eosinophils% 0.4 % (0-5); Hematocrit 41.8 % (40-54); Hemoglobin 14.1 g/dL (13.0-16.5); Lymphocyte # 1.09 X10^3/ul (0.83-4.51); Lymphocyte % 8.1 % (19-41); Mean Corp Hgb Conc 33.7 g/dL (32-36); Mean Corpuscular Hgb 30.4 pg (27.0-32.0); Mean Corpuscular Volume 90.1 fL (80-94); Mean Platelet Vol. 9.2 fl (6.2-12.0); Monocyte# 1.31 X10^3/uL; Monocyte% 9.7 % (0-10); NRBC Flagged by Analyzer 0 % (0-5); Neutrophil # 10.86 X10^3/uL (2.7-7.7); Neutrophil % 80.9 % (47-70); Platelet Count 162 K/mm3 (150-450); RBC Distribution Width CV 13.2 % (11.6-14.6); RBC Distribution Width SD 43.1 fl (35.1-43.9); Red Blood Count 4.64 M/mm3 (4.6-6.2); White Blood Count 13.4 K/mm3 (4.4-11.0)
[2022-05-09] MEDS: Morphine 4 MG/ML Syringe IV (22:27)
[2022-05-09] MEDS: Ondansetron 4 MG/2 ML Vial IV (22:27)
[2022-05-09] MEDS: 0.9% Normal Saline 1,000 ML 1000 ML IV (22:27)
[2022-05-09 22:59] LABS: Anion Gap 8 (5-15); BUN 9 mg/dL (7-18); BUN/Creat Ratio 9.7 RATIO (10-20); Calcium,Total 9.7 mg/dL (8.5-10.1); Chloride 104 mmol/L (98-107); Creatinine, Serum 0.93 mg/dL (0.70-1.30); EST Glomerular Filtration Rate 95 mL/min (>60); Est Glom Filt Rate - Afr Amer 115 mL/min (>60); Estimated Creatinine Clearance 114.73 ml/min; Glucose 154 mg/dL (74-106); Lipase 117 U/L (73-393); Potassium 3.7 mmol/L (3.5-5.1); Sodium Level 137 mmol/L (136-145)
[2022-05-10] MEDS: Ciprofloxacin 500 MG Tablet PO (00:29)
[2022-05-10 00:30] VITALS: BP 151/88; PULSE 72; RESP 18; O2SAT 100
== END 2022-05-10 00:33 | disposition home or self-care (01) ==
PROVIDERS: Emergency Provider Emergency Medicine; PCP Family Medicine; Visit Provider Emergency Medicine
DX: K57.92 Diverticulitis of intestine, part unspecified, without perforation or abscess without bleeding (principal); I10 Essential (primary) hypertension; E78.5 Hyperlipidemia, unspecified
CPT/HCPCS: 74177; 80048; 83690; 85025; 96361; 96374; 96375; 99283; J7030; Q9967; A4216; J2405

== ENCOUNTER → 2022-05-20 | Outpatient (CLI) | payer BC, SELFPAY ==
--- NOTE | 2022-05-20 15:29 | MRI_ITS ---
STUDY: MRI CERVICAL SPINE WITHOUT CONTRAST REASON FOR EXAM: Male, 41 years old. Numbness and tingling TECHNIQUE: Standardized fat and water weighted pulse sequences were obtained in the sagittal and axial planes. COMPARISON: None FINDINGS: Normal foramen magnum and brainstem-cervical cord junction. Normal craniovertebral junction. Normal anterior atlantoaxial articulation. Normal odontoid process. Normal cervical lordosis. Normal vertebral bodies and posterior osseous elements. C2-3: Normal endplates. Normal disc height, signal and morphology. Normal central canal and intervertebral neural foramina. C3-4: Normal endplates. Normal disc height, signal and morphology. Normal central canal and intervertebral neural foramina. C4-5: Normal endplates. Normal disc height, signal and morphology. Normal central canal and intervertebral neural foramina. C5-6: Normal endplates. Normal disc height. Minimal ventral extradural defect due to small posterior bulging annulus. Normal central canal and intervertebral neural foramina. C6-7: Normal endplates. Normal disc height, signal and morphology. Normal central canal and intervertebral neural foramina. C7-T1: Normal endplates. Normal disc height, signal and morphology. Normal central canal and intervertebral neural foramina. T1-T2 and T2-T3: (Sagittal only). Normal endplates. Normal disc height, signal and morphology. Normal central canal and intervertebral neural foramina. T3-T4: (Sagittal only). T4 superior endplate is not included. The T3 inferior endplate is barely included. Normal barely included portion of the T3-T4 disc space. No ventral extradural defect. Normal central canal and intervertebral neural foramina. Normal cervical cord. Normal included upper thoracic spinal cord, brainstem and cerebellum. Normal visualized soft tissue structures. MRI/Spine Cervical (Routine) IMPRESSION: 1. Small C5-C6 posterior bulging annulus. 2. No MRI evidence of cervical extruded disc fragment, disc protrusion, spinal stenosis or cervical nerve root displacement. 3. Normal cervical spinal cord. Electronically Signed: Pato Giudo MD at 11:41 EDT ,
== END | disposition home or self-care (01) ==
PROVIDERS: PCP Family Medicine; Visit Provider Physician Assistant
DX: R20.8 Other disturbances of skin sensation (principal)
CPT/HCPCS: 72141

== ENCOUNTER → 2022-05-26 | Outpatient (CLI) | payer BC, SELFPAY ==
--- NOTE | 2022-05-26 15:12 | NEURO ---
NCS and/or EMG Patient Report Ordering Doctor: Kenn Wong DATE OF SERVICE: 05/26/22 Julian presents for electrodiagnostic testing of the left upper limb. He reports sharp shooting pains from the right upper arm to the elbow. He reports numbness and tingling in the hand and forearm. Electrodiagnostic findings: Left median motor nerve demonstrates normal distal latency, amplitude with reduced conduction velocity. Left ulnar motor nerve demonstrates normal distal latency and amplitude with normal conduction velocity. Normal median and ulnar F waves. Normal median sensory latency at the wrist. Normal left median palmar latency. On needle EMG, all muscles tested in the left upper limb showed no evidence of denervation with normal motor unit action potentials. Electrodiagnostic impression: This is an abnormal study in the left upper limb 1. Electrodiagnostic findings suggestive of left-sided median mononeuropathy, consistent with a mild left carpal tunnel syndrome 2. No electrodiagnostic evidence is noted for cervical radiculopathy or brachial plexopathy.
== END | disposition home or self-care (01) ==
LOC: PSN 14:27
PROVIDERS: PCP Family Medicine; Referring Provider Physician Assistant; Visit Provider Physician Assistant
DX: R20.8 Other disturbances of skin sensation (principal)
CPT/HCPCS: 95886; 95910

== ENCOUNTER → 2022-06-01 | Outpatient (CLI) | payer BC, SELFPAY ==
--- NOTE | 2022-06-01 14:11 | CT_ITS ---
EXAM: CT CHEST WITHOUT INTRAVENOUS CONTRAST CLINICAL INDICATION: pain TECHNIQUE: Helically acquired images were obtained of the chest without intravenous contrast. CTDIvol = ( 15.65 ) mGy, DLP = ( 598.25 ) mGycm This CT exam was performed using one or more of the following dose reduction techniques: automated exposure control, adjustment of the mA and/or kV according to patient size, and/or use of iterative reconstruction technique. This report was created using Skip[employer] report generation technology. COMPARISON: None. FINDINGS: LUNGS AND PLEURAL SPACES: Unremarkable. No consolidation. No pleural effusion or pneumothorax. No suspicious or remarkable pulmonary nodules. HEART: Unremarkable. Heart size is normal. No pericardial effusion. No significant coronary artery calcifications. MEDIASTINUM: Unremarkable. No mediastinal or hilar adenopathy. Esophagus is unremarkable. No hiatal hernia. THYROID: Unremarkable. No thyroid lesions. BONES/JOINTS: Unremarkable. No suspicious lytic or sclerotic lesion of bone. SOFT TISSUES: Overlying soft tissues are unremarkable. VASCULATURE: Unremarkable. Thoracic aorta is non-dilated. OTHER FINDINGS: Upper abdomen is unremarkable. CT/Chest without Contrast IMPRESSION: No acute cardiopulmonary disease. Electronically Signed: Raza Cruz MD at 4:19 EDT ,
== END | disposition home or self-care (01) ==
LOC: CT 14:09
PROVIDERS: PCP Family Medicine; Visit Provider Physician Assistant
DX: R07.81 Pleurodynia (principal)
CPT/HCPCS: 71250

== ENCOUNTER → 2022-06-25 | Outpatient (CLI) | payer BC, SELFPAY ==
[2022-06-25 17:02] LABS: Erythrocyte Sedimentation Rate 3 mm/hr (0-20)
[2022-06-25 18:08] LABS: CPK Total, Creatine Kinase 280 U/L (39-308); CRP < 2.90 mg/L (0.0-3.0); Prolactin 4.4 ng/mL; Uric Acid 6.6 mg/dL (3.5-7.2)
[2022-06-30 12:09] LABS: Dopamine, Pl <30 pg/mL (0-48); Epinephrine, Pl 37 pg/mL (0-62); Norepinephrine, Pl 409 pg/mL (0-874)
== END | disposition home or self-care (01) ==
PROVIDERS: PCP Family Medicine; Referring Provider Internal Medicine Gastroenterology; Visit Provider Internal Medicine Gastroenterology
DX: R07.9 Chest pain, unspecified (principal); K58.9 Irritable bowel syndrome, unspecified
CPT/HCPCS: 36415; 82384; 82550; 84146; 84550; 85652; 86140

== ENCOUNTER 2022-07-02 06:19 | Emergency (ER) | payer BC, SELFPAY ==
[2022-07-02] VITALS (25 sets, daily range): BP systolic 140–175; BP diastolic 78–106; PULSE 47–69; RESP 0–17; TEMP 36.3; O2SAT 93–100; BMI 29.4
--- NOTE | 2022-07-02 07:08 | EKG12_ITS ---
Test Reason : cp Blood Pressure : / mmHG Vent. Rate : 062 BPM Atrial Rate : 062 BPM P-R Int : 132 ms QRS Dur : 102 ms QT Int : 392 ms P-R-T Axes : 058 056 008 degrees QTc Int : 397 ms Normal sinus rhythm Normal ECG Confirmed by MELCHOR BERGER, PITO ([id number]), market editor KAREY KIRBY ([id number]) on 07/05/2022 11:27:59 AM Referred By: Rhys Confirmed By:MICHELLE ROCHE MD
[2022-07-02 07:27] LABS: Erythrocyte Sedimentation Rate 3 mm/hr (0-20)
[2022-07-02 07:38] LABS: Anion Gap 3 (5-15); BUN 15 mg/dL (7-18); CRP < 2.90 mg/L (0.0-3.0); Calcium,Total 9.9 mg/dL (8.5-10.1); Chloride 105 mmol/L (98-107); Creatinine, Serum 1.15 mg/dL (0.70-1.30); EST Glomerular Filtration Rate 74 mL/min (>60); Est Glom Filt Rate - Afr Amer 90 mL/min (>60); Estimated Creatinine Clearance 92.78 ml/min; Glucose 142 mg/dL (74-106); Potassium 3.8 mmol/L (3.5-5.1); Sodium Level 135 mmol/L (136-145); Troponin-I HS 5 pg/mL (3.0-78.0)
--- NOTE | 2022-07-02 08:19 | EX.ED.DYSGE1 ---
HPI History of Present Illness Chief Complaint: Chest Pain Detail of Chief Complaint: Intermittent chest discomfort, intermittent alternating shoulder pain, bila Informant: patient and spouse/S.O. Onset/Context/Timing Onset: Month(s) Quality: Detailed in the HPI narrative Location: Chest and shoulders and hands Current Severity: Mild Maximum Severity: Moderate Worsened by: Nothing Relieved by: Nothing Associated Symptoms Associated Symptoms: Vague symptoms Narrative Narrative: Patient is a 41-year-old male who presents with chest discomfort, intermittent bilateral shoulder pain, bilateral tingling of his hands. Patient was seen by me earlier this year. Patient has follow-up with Dr. Panchal, has had a rheumatologic work-up and did have a cardiac cath about 18 months ago which revealed 30% lesion. Patient has atypical cardiac symptoms. is concerned because he is lost significant mount of weight and his quality life has been affected. Patient denies fever or chills. Patient denies night sweats. Patient denies headache, visual, ocular auditory symptoms. Patient denies orthopnea, PND, dyspnea on exertion. Patient denies abdominal pain, change in color, consistency or caliber of his stool. Patient denies rash, myalgias or arthralgias. He denies joint swelling. Patient has no symptoms that raise concern for thoracic aneurysm. Furthermore, he has no symptoms suggestive of thoracic dissection. Review of prior outpatient studies indicates patient had a thorough hematologic work-up for autoimmune disorder. All tests were essentially negative. CPK was slightly elevated on 1 reading, 11. Patient had MRI of his neck which was essentially unremarkable. He has had a recent CAT scan of his head which was negative. Prior similar symptoms: Yes Recent Illness/Hospitalization: No [facility] Medical History Essential (primary) hypertension Hyperglycemia Hyperlipidemia Polyarthralgia Home Medications atorvastatin 20 mg tablet 20 mg PO QHS #30 tabs 08/26/20 [Rx Last Taken Unknown] aspirin 81 mg tablet 81 mg PO DAILY 10/12/21 [History Last Taken Unknown] metformin 500 mg 24 hr tablet,extended release 500 mg PO DAILY 10/12/21 [History Last Taken Unknown] suavquyb-upxjzjza-hjqpv acid 400 mcg-vit K 20 mcg-lycop 300 mcg tablet (Men's Multivitamin) 1 tab PO DAILY 10/12/21 [History Last Taken Unknown] quinapril 10 mg tablet 10 mg PO DAILY 04/01/22 [History Last Taken Unknown] Allergy/AdvReac Type Severity Reaction Status Date / Time Penicillins Allergy Unknown Verified 07/02/22 06:25 Surgical History History of left heart catheterization (08/26/20) Social History household members: spouse and children Smoking Status: Never smoker alcohol intake: current alcohol intake frequency: holidays/special occasions only Alcohol type: beer substance use type: does not use ROS ROS ED Constitutional Constitutional ED: Reports weight loss; Denies chills, fever(s), subjective or sweats Eyes Eyes: Denies blurry vision, change in vision or diplopia ENT ENT ED: Denies ear pain, rhinorrhea or sore throat Cardiovascular Cardiovascular: Reports chest pain; Denies orthopnea, palpitations, paroxysmal nocturnal dyspnea or racing heartbeat Respiratory/Chest Respiratory/Chest: Denies cough, dyspnea, dyspnea on exertion, orthopnea or paroxysmal nocturnal dyspnea Gastrointestinal Gastrointestinal: Denies abdominal pain, constipation, diarrhea, nausea or vomiting Genitourinary Genitourinary ED: Denies dysuria, hematuria or urinary frequency Musculoskeletal Musculoskeletal: Reports neck pain; Denies arthralgias, back pain or myalgias Integumentary Denies rash Neurologic Neurologic: Reports paresthesias; Denies headache(s) or weakness Psychiatric Psychiatric: Reports anxiety and depression Endocrine Endocrinology: Denies cold intolerance or heat intolerance Hematologic/Lymphatic Hematologic/Lymphatic: Reports systems reviewed and no addt'l complaints, except as documented and as per HPI EXAM Physical Exam Const Vital Signs: 07/02/22 06:20 07/02/22 06:42 07/02/22 06:45 Temperature 97.4 F L Temperature Source Temporal Pulse Rate 69 63 61 Respiratory Rate 17 12 7 L Blood Pressure 172/106 H 160/93 H Blood Pressure Mean 128 112 Pulse Ox 100 99 98 Oxygen Delivery Method Room Air 07/02/22 06:50 07/02/22 07:00 07/02/22 07:00 Temperature Temperature Source Pulse Rate 64 62 62 Respiratory Rate 0 L 15 15 Blood Pressure 175/98 H Blood Pressure Mean 121 Pulse Ox 97 99 99 Oxygen Delivery Method 07/02/22 07:10 07/02/22 07:15 07/02/22 07:20 Temperature Temperature Source Pulse Rate 62 58 L 63 Respiratory Rate 12 15 13 Blood Pressure 164/88 H Blood Pressure Mean 107 Pulse Ox 97 97 93 Oxygen Delivery Method 07/02/22 07:30 07/02/22 07:30 07/02/22 07:40 Temperature Temperature Source Pulse Rate 59 L 59 L 59 L Respiratory Rate 12 12 11 L Blood Pressure 154/87 H Blood Pressure Mean 106 Pulse Ox 97 97 97 Oxygen Delivery Method 07/02/22 07:45 07/02/22 07:50 07/02/22 08:00 Temperature Temperature Source Pulse Rate 54 L 56 L 48 L Respiratory Rate 12 9 L 11 L Blood Pressure 157/95 H 151/90 H Blood Pressure Mean 112 105 Pulse Ox 98 98 98 Oxygen Delivery Method 07/02/22 08:00 07/02/22 08:10 07/02/22 08:15 Temperature Temperature Source Pulse Rate 48 L 55 L 60 Respiratory Rate 11 L 10 L 13 Blood Pressure 153/90 H Blood Pressure Mean 107 Pulse Ox 98 98 97 Oxygen Delivery Method 07/02/22 08:20 07/02/22 08:30 07/02/22 08:30 Temperature Temperature Source Pulse Rate 52 L 53 L 53 L Respiratory Rate 10 L 10 L 10 L Blood Pressure 157/78 H Blood Pressure Mean 97 Pulse Ox 98 97 97 Oxygen Delivery Method 07/02/22 08:40 07/02/22 08:45 07/02/22 08:50 Temperature Temperature Source Pulse Rate 56 L 51 L 57 L Respiratory Rate 10 L 13 9 L Blood Pressure 145/86 H Blood Pressure Mean 103 Pulse Ox 97 98 100 Oxygen Delivery Method 07/02/22 09:00 07/02/22 09:00 07/02/22 09:10 Temperature Temperature Source Pulse Rate 47 L 47 L 56 L Respiratory Rate 17 17 12 Blood Pressure 145/83 H Blood Pressure Mean 102 Pulse Ox 98 98 97 Oxygen Delivery Method 07/02/22 09:15 07/02/22 09:20 Temperature Temperature Source Pulse Rate 59 L 66 Respiratory Rate 17 10 L Blood Pressure 157/85 H Blood Pressure Mean 106 Pulse Ox 98 99 Oxygen Delivery Method Positive well nourished and well developed General Appearance ED: well developed and NAD; Negative for cyanotic, diaphoretic or pallor HEENT Reports moist mucous membranes HEENT Narrative: Head is atraumatic normocephalic. Ears normal. Nares patent. Posterior pharynx is normal. Eyes PERRL and EOMs intact bilaterally General Eye ED: Negative for pale conjunctiva or scleral icterus Neck no lymphadenopathy, supple and no JVD Chest Wall inspection of chest normal and palpation of chest normal Resp normal respiratory effort and clear to auscultation bilaterally Cardio regular rate, regular rhythm and S1 normal heart sound GI normal to inspection, nondistended, normoactive bowel sounds, non-tender, non-distended and no masses; Negative for hepatosplenomegaly Extremity normal to inspection Extremity Narrative: Axillary, median, radial and ulnar function intact. Distal pulses upper and lower extremity are 2+ and symmetric. General Extremety ED: Negative for edema or tenderness General Extremity: Negative for edema Neuro oriented x3 and CN's II-XII intact bilaterally Sensorium / Orientation: alert Psych Mood & Affect: depressed Skin no rashes or lesions noted, no wounds and skin turgor normal General Skin Exam: elasticity normal; Negative for jaundice or pallor MDM MDM MDM Narrative Medical decision making narrative: Patient with vague symptoms. Since she has risk factors for cardiac disease will obtain EKG and troponin. EKG and troponin were unremarkable. Since he had elevated nonspecific inflammatory markers in the past these were ordered as well. Patient and were told that he may have an autoimmune disorder and it is not uncommon to have false negative test. However, based on his history physical findings he has significant specific historical or physical finding that would suggest he has any particular autoimmune disorder. He has had extensive outpatient work-up and none of these tests were repeated. His prior inpatient, outpatient ER records were documented in the HPI narrative. History & Record Review Additional record(s) reviewed:: Prior inpatient record, Prior outpatient record, Prior ED visit and Prior labs Lab Data Labs: Laboratory Results - last 24 hr 07/02/22 07/02/22 06:35 06:35 ESR 3 Sodium 135 L Potassium 3.8 Chloride 105 Carbon Dioxide 27.0 Anion Gap 3 L BUN 15 Creatinine 1.15 Estim Creat Clear Calc 92.78 Est GFR (MDRD) Af Amer 90 Est GFR (MDRD) Non-Af 74 BUN/Creatinine Ratio 13.0 Glucose 142 H Calcium 9.9 Troponin I High Sens 5 C-React Prot Ext Range < 2.90 Discharge Plan Triage Chief Complaint: Chest Pain ED Provider: Donaldson,Zachery Dx/Rx/DC Orders Clinical Impression: Chest pain of unknown etiology, Irritable bowel syndrome (IBS), Essential (primary) hypertension, Paresthesia of both hands, Rapid weight loss Instructions: ED Chest Pain, Noncardiac Prescriptions: No Action atorvastatin 20 mg Tablet 20 mg PO QHS Qty: 30 0RF aspirin 81 mg Tablet 81 mg PO DAILY Men's Multivitamin 400-20-300 mcg Tablet 1 tab PO DAILY metformin 500 mg tablet,ER meir.retention 24 hr 500 mg PO DAILY quinapril 10 mg tablet 10 mg PO DAILY Primary Care Provider: Ranjith Barney Referrals: Ranjith Barney MD [Primary Care Provider] - 1 Week Disposition Disposition: Home, Self Care
== END 2022-07-02 10:16 | disposition home or self-care (01) ==
PROVIDERS: Emergency Provider Emergency Medicine; PCP Family Medicine; Visit Provider Emergency Medicine
DX: R07.9 Chest pain, unspecified (principal); K58.9 Irritable bowel syndrome, unspecified; R20.2 Paresthesia of skin; R63.4 Abnormal weight loss; I10 Essential (primary) hypertension; E78.5 Hyperlipidemia, unspecified; M25.511 Pain in right shoulder; M25.512 Pain in left shoulder; Z79.82 Long term (current) use of aspirin; Z79.84 Long term (current) use of oral hypoglycemic drugs; Z79.899 Other long term (current) drug therapy
CPT/HCPCS: 80048; 84484; 85652; 86140; 93005; 99282; A4216

== ENCOUNTER → 2022-07-06 | Outpatient (CLI) | payer BC, SELFPAY ==
[2022-07-06 18:26] LABS: Ferritin 387 ng/mL (26-388); Iron 82 ug/dL (65-175); Iron Binding Capacity,Total 352 ug/dL (250-450); PERCENT IRON SATURATION 23.3 % (15.0-55.0)
== END | disposition home or self-care (01) ==
LOC: MTLAB 16:13
PROVIDERS: PCP Family Medicine; Referring Provider Family Medicine; Visit Provider Family Medicine
DX: E88.01 Alpha-1-antitrypsin deficiency (principal); R53.83 Other fatigue; R07.89 Other chest pain; R79.89 Other specified abnormal findings of blood chemistry; G89.29 Other chronic pain
CPT/HCPCS: 36415; 81291; 82595; 82728; 83540; 83550

== ENCOUNTER → 2022-07-10 | Outpatient (CLI) | payer BC, SELFPAY ==
[2022-07-20 15:08] LABS: Dopamine, 24Ur 309 ug/24 hr (0-510); Dopamine, UR 65 ug/L (Undefined); Epinephrine, 24Ur 14 ug/24 hr (0-20); Epinephrine, Ur 3 ug/L (Undefined); Norepinephrine, 24Ur 67 ug/24 hr (0-135); Norepinephrine, Ur 14 ug/L (Undefined)
== END | disposition home or self-care (01) ==
LOC: LABSPEC 10:13
PROVIDERS: PCP Family Medicine; Referring Provider Internal Medicine Gastroenterology; Visit Provider Internal Medicine Gastroenterology
DX: R07.9 Chest pain, unspecified (principal); K58.9 Irritable bowel syndrome, unspecified
CPT/HCPCS: 81050; 82384

== ENCOUNTER → 2022-07-22 | Outpatient (CLI) | payer BC, SELFPAY ==
[2022-07-30 12:09] LABS: Dopamine, Pl <30 pg/mL (0-48); Epinephrine, Pl 25 pg/mL (0-62); Norepinephrine, Pl 312 pg/mL (0-874)
== END | disposition home or self-care (01) ==
PROVIDERS: PCP Family Medicine; Referring Provider Family Medicine; Visit Provider Family Medicine
DX: I10 Essential (primary) hypertension (principal)
CPT/HCPCS: 36415; 82384

== ENCOUNTER 2022-08-21 18:52 | Emergency (ER) | payer BC, SELFPAY ==
[2022-08-21 18:53] VITALS: BP 155/106; PULSE 98; RESP 18; TEMP 35.9; O2SAT 98; BMI 29.7
[2022-08-21 19:03] VITALS: BP 154/95; PULSE 72; RESP 22; O2SAT 100
--- NOTE | 2022-08-21 19:20 | EKG12_ITS ---
Test Reason : CP Blood Pressure : / mmHG Vent. Rate : 066 BPM Atrial Rate : 066 BPM P-R Int : 136 ms QRS Dur : 104 ms QT Int : 400 ms P-R-T Axes : 067 068 024 degrees QTc Int : 419 ms Normal sinus rhythm Normal ECG Confirmed by MELCHOR BERGER, PITO ([id number]), assistant editor KAREY KIRBY ([id number]) on 08/23/2022 11:01:52 A M Referred By: NIDIA Confirmed By:MICHELLE ROCHE MD
[2022-08-21] MEDS: Aspirin 81 MG TAB.CHEW 324 MG PO (19:28)
--- NOTE | 2022-08-21 19:30 | RAD_ITS ---
STUDY: X-RAY CHEST REASON FOR EXAM: Male, 41 years old. chest pain TECHNIQUE: Single AP portable view of the chest. COMPARISON: 10/12/2021 FINDINGS: The lungs are clear and expanded. There is no demonstrated pleural abnormality. Normal size heart. Normal mediastinum and laly. Normal visualized pulmonary arteries. Normal visualized aortic arch and descending thoracic aorta. Normal visualized thoracic spine. Normal visualized ribs, clavicles, and shoulders. There is no demonstrated abnormality of the visualized soft tissue structures of the upper abdomen. RAD/Chest 1 View (Portable) IMPRESSION: Normal x-ray examination of the chest. Electronically Signed: Sanjay Barnes MD at 19:45 EDT ,
[2022-08-21 19:32] LABS: Absolute Lymphocyte Count 1.26 X10^3/uL (0.83-4.51); Absolute Neutrophil Count 7.6 X10^3/uL (2.0-7.7); Basophil# 0.06 X10^3/uL; Basophil% 0.6 % (0-1); Eosinophil# 0.05 X10^3/uL; Eosinophils% 0.5 % (0-5); Hematocrit 39.5 % (40-54); Hemoglobin 13.6 g/dL (13.0-16.5); Lymphocyte # 1.26 X10^3/ul (0.83-4.51); Lymphocyte % 13.4 % (19-41); Mean Corp Hgb Conc 34.4 g/dL (32-36); Mean Corpuscular Hgb 31.4 pg (27.0-32.0); Mean Corpuscular Volume 91.2 fL (80-94); Mean Platelet Vol. 9.4 fl (6.2-12.0); Monocyte# 0.45 X10^3/uL; Monocyte% 4.8 % (0-10); NRBC Flagged by Analyzer 0 % (0-5); Neutrophil # 7.57 X10^3/uL (2.7-7.7); Neutrophil % 80.3 % (47-70); Platelet Count 176 K/mm3 (150-450); RBC Distribution Width CV 13.2 % (11.6-14.6); RBC Distribution Width SD 44.5 fl (35.1-43.9); Red Blood Count 4.33 M/mm3 (4.6-6.2); White Blood Count 9.4 K/mm3 (4.4-11.0)
--- NOTE | 2022-08-21 19:44 | ED.VIS.CHEST ---
HPI History of Present Illness Chief Complaint: Chest Pain Onset/Context/Timing Onset: Today and Hours (5) Activity at onset: gradual Timing: Continuous Quality: Positive for Burning Location: Right Chest and Left Chest Worsened By: - (Activity) Relieved By: Nothing Associated Symptoms: Positive for Nausea, Diaphoresis, Dyspnea and Lightheadedness; Negative for Vomiting, Cough, Fever, Acid Reflux or Palpitations Narrative Narrative: Patient presents with chest pain that began earlier this morning. Patient states that it kind of went away and then began again approximately 5 hours ago. Patient states it has been constant for the last 5 hours. Patient describes it as burning. Patient states it is over both sides of the chest near the axilla. Patient states it is worse with any activity. Patient states nothing seems to help with it. Patient admits to some nausea but denies any vomiting. Patient states he broke out into a sweat with it. Patient states he feels lightheaded, like he is going to pass out. Patient also admits to some mild shortness of breath with the pain. CVD Risk Factors: Positive for Hypertension; Negative for Diabetes, Hypercholesterolemia, Family History 1' </=55 or Smoking PE Risk Factors: Negative for Recent Travel/Surgery, Recent Immobilization, Prior DVT or PE, Cancer or OCP + Smoking + >/=35 [facility] Medical History Essential (primary) hypertension Hyperglycemia Hyperlipidemia Polyarthralgia Home Medications atorvastatin 20 mg tablet 20 mg PO QHS #30 tabs 08/26/20 [Rx Last Taken Unknown] aspirin 81 mg tablet 81 mg PO DAILY 10/12/21 [History Last Taken Unknown] metformin 500 mg 24 hr tablet,extended release 500 mg PO DAILY 10/12/21 [History Last Taken Unknown] llmecvdz-nchhdniq-vuiva acid 400 mcg-vit K 20 mcg-lycop 300 mcg tablet (Men's Multivitamin) 1 tab PO DAILY 10/12/21 [History Last Taken Unknown] quinapril 10 mg tablet 10 mg PO DAILY 04/01/22 [History Last Taken Unknown] ciprofloxacin HCl 500 mg tablet 500 mg PO BID #20 tabs 07/28/22 [Rx Last Taken Unknown] metronidazole 500 mg tablet 500 mg PO TID #30 tabs 07/28/22 [Rx Last Taken Unknown] Allergy/AdvReac Type Severity Reaction Status Date / Time Penicillins Allergy Unknown Verified 08/21/22 18:54 Surgical History History of left heart catheterization (08/26/20) Social History household members: spouse and children Smoking Status: Never smoker alcohol intake: current alcohol intake frequency: holidays/special occasions only Alcohol type: beer substance use type: does not use ROS ROS ED Constitutional Constitutional ED: Denies chills or fever(s) Eyes Eyes: Denies blurry vision or change in vision ENT ENT ED: Denies rhinorrhea or sore throat Cardiovascular Cardiovascular: Reports chest pain; Denies palpitations Respiratory/Chest Respiratory/Chest: Reports dyspnea; Denies cough Gastrointestinal Gastrointestinal: Reports nausea; Denies abdominal pain or vomiting Genitourinary Genitourinary ED: Denies dysuria or hematuria Musculoskeletal Musculoskeletal: Denies back pain or neck pain Integumentary Denies abscess or rash Neurologic Neurologic: Denies headache(s) or weakness Allergic/Immunologic Allergic/Immunologic ED: Denies mouth swelling or urticaria EXAM Physical Exam Const Vital Signs: 08/21/22 18:53 08/21/22 19:03 08/21/22 19:31 Temperature 96.7 F L Temperature Source Temporal Pulse Rate 98 72 Respiratory Rate 18 22 H Blood Pressure 155/106 H 154/95 H Blood Pressure Mean 122 114 Pulse Ox 98 100 Oxygen Delivery Method Room Air Room Air Room Air Positive well nourished and well developed General Appearance ED: well developed and NAD HEENT Reports moist mucous membranes normocephalic and atraumatic Eyes PERRL and EOMs intact bilaterally Neck supple and no JVD Chest Wall palpation of chest normal Resp normal respiratory effort and clear to auscultation bilaterally Effort and Inspection: Negative for respiratory distress Cardio regular rate, regular rhythm and no murmurs GI normal to inspection, nondistended, normoactive bowel sounds, soft to palpation, non-tender and non-distended Extremity normal to inspection General Extremety ED: Negative for edema or tenderness General Extremity: Negative for edema Neuro oriented x3, CN's II-XII intact bilaterally and no sensory deficits noted Sensorium / Orientation: awake and alert Motor Exam: strength 5/5 throughout Psych mental status grossly normal Heart Score History: Moderately Suspicious ECG: Normal Age: >45 - <65 years Risk Factors: 1 or 2 Risk Factors Troponin: </= Normal Limit Score: 3 MDM MDM MDM Narrative Medical decision making narrative: Differential diagnosis includes cardiac dysrhythmia, cardiac ischemia, pneumonia, pneumothorax, musculoskeletal pain, and anxiety. EKG will be obtained to assess for cardiac dysrhythmia and cardiac ischemia. Chest x-ray will be obtained to assess for pneumonia and pneumothorax. CBC will be obtained to assess for leukocytosis and anemia. Basic metabolic profile will be obtained to assess for electrolyte abnormality and renal function. High-sensitivity troponin will be obtained to assess for cardiac ischemia. 2-hour repeat high-sensitivity troponin will be obtained to assess for ongoing cardiac ischemia. Patient has a Wells score of 0 and is PERC negative. Therefore, I do not feel patient has a pulmonary embolism. Lab Data Attestation: I reviewed the patient's lab results. Lab results narrative: CBC was reviewed and was within normal limits. Basic metabolic profile was reviewed and was within normal limits. High-sensitivity troponin was reviewed and was normal at 4. 2-hour repeat high-sensitivity troponin was reviewed and was also normal at 4. Labs: Laboratory Results - last 24 hr 08/21/22 08/21/22 08/21/22 19:00 19:00 21:16 WBC 9.4 RBC 4.33 L Hgb 13.6 Hct 39.5 L MCV 91.2 MCH 31.4 MCHC 34.4 RDW Std Deviation 44.5 H RDW Coeff of Anand 13.2 Plt Count 176 MPV 9.4 Immature Gran % (Auto) 0.400 Neut % (Auto) 80.3 H Lymph % (Auto) 13.4 L [place] % (Auto) 4.8 Eos % (Auto) 0.5 Baso % (Auto) 0.6 Absolute Neuts (auto) 7.6 Absolute Lymphs (auto) 1.26 Nucleated RBC % 0 Sodium 134 L Potassium 4.2 Chloride 100 Carbon Dioxide 25.0 Anion Gap 9 BUN 11 Creatinine 1.05 Estim Creat Clear Calc 101.62 Est GFR (MDRD) Af Amer 100 Est GFR (MDRD) Non-Af 82 BUN/Creatinine Ratio 10.5 Glucose 125 H Calcium 9.5 Troponin I High Sens 4 4 Radiography Chest X-Ray - ED: 1 View, Read by ED Physician, Read by Radiologist and No Acute Disease Diagnostic Testing: Clinical Impression(s) from Imaging Studies Chest X-Ray 08/21/22 19:30 IMPRESSION: Normal x-ray examination of the chest. Electronically Signed: Sanjay Barnes MD at 19:45 EDT , Portable 1 view chest x-ray was obtained. On my independent interpretation, lung [place] are clear. There is normal cardiac silhouette. Bony thorax is normal. There is no acute process noted. Radiologist also interpreted the x-ray and agrees. EKG Initial EKG: Attestation: I personally reviewed and interpreted this EKG as follows: Interpretation: Sinus Rhythm (66) and No Acute Injury Pattern Comments: EKG was obtained. On my independent interpretation, it showed a normal sinus rhythm with a rate of 66. WI interval, QRS interval, and QTc intervals were all normal. [place] was normal. There are no acute ST or T wave changes. Prior EKG tracings: available for review Prior: Unchanged (07/02/2022) Treatment and Re-Evaluation :: Patient was given aspirin here. Patient was advised of his findings. Patient has a HEART score of 3. Patient was advised that this is low risk for acute cardiac event. Patient was instructed to follow-up with his primary care physician in 5 to 7 days for further evaluation. Patient understood and was agreeable with the plan. All stents were answered. Discharge Plan Triage Chief Complaint: Chest Pain ED Provider: Ranjith Tena Dx/Rx/DC Orders Clinical Impression: Chest pain, Essential (primary) hypertension Instructions: ED Chest Pain, Uncertain Cause Prescriptions: No Action atorvastatin 20 mg Tablet 20 mg PO QHS Qty: 30 0RF aspirin 81 mg Tablet 81 mg PO DAILY Men's Multivitamin 400-20-300 mcg Tablet 1 tab PO DAILY metformin 500 mg tablet,ER meir.retention 24 hr 500 mg PO DAILY quinapril 10 mg tablet 10 mg PO DAILY ciprofloxacin HCl 500 mg tablet 500 mg PO BID Qty: 20 0RF metronidazole 500 mg tablet 500 mg PO TID Qty: 30 0RF Primary Care Provider: Ranjith Barney Referrals: Ranjith Barney MD [Primary Care Provider] - 5-7 Days Disposition Disposition: Home, Self Care
[2022-08-21 19:53] LABS: Anion Gap 9 (5-15); BUN 11 mg/dL (7-18); BUN/Creat Ratio 10.5 RATIO (10-20); Calcium,Total 9.5 mg/dL (8.5-10.1); Chloride 100 mmol/L (98-107); Creatinine, Serum 1.05 mg/dL (0.70-1.30); EST Glomerular Filtration Rate 82 mL/min (>60); Est Glom Filt Rate - Afr Amer 100 mL/min (>60); Estimated Creatinine Clearance 101.62 ml/min; Glucose 125 mg/dL (74-106); Potassium 4.2 mmol/L (3.5-5.1); Sodium Level 134 mmol/L (136-145); Troponin-I HS (w/2H Reflex) 4 pg/mL (3.0-78.0)
[2022-08-21 21:30] LABS: Reflex Troponin-HS? (from REC) Y
[2022-08-21 21:47] LABS: Troponin-I HS 4 pg/mL (3.0-78.0)
[2022-08-21 22:10] VITALS: BP 162/89; PULSE 59; RESP 18; O2SAT 95
== END 2022-08-21 22:11 | disposition home or self-care (01) ==
PROVIDERS: Emergency Provider Emergency Medicine; PCP Family Medicine; Visit Provider Emergency Medicine
DX: R07.9 Chest pain, unspecified (principal); I10 Essential (primary) hypertension; R06.02 Shortness of breath; E78.5 Hyperlipidemia, unspecified; R11.0 Nausea; R42 Dizziness and giddiness; Z79.82 Long term (current) use of aspirin; Z79.84 Long term (current) use of oral hypoglycemic drugs
CPT/HCPCS: 71045; 80048; 84484; 85025; 93005; 99283; A4216

== ENCOUNTER → 2022-09-13 | Outpatient (CLI) | payer BC, SELFPAY ==
[2022-09-15 15:08] LABS: Lyme Scn Total Ab w/Rflx Negative (Negative)
== END | disposition home or self-care (01) ==
PROVIDERS: PCP Family Medicine; Visit Provider Family Medicine
DX: R68.89 Other general symptoms and signs (principal)
CPT/HCPCS: 86618

== ENCOUNTER 2022-11-12 07:49 | Day surgery (SDC) | payer BC, SELFPAY ==
[2022-11-12] VITALS (7 sets, daily range): BP systolic 124–152; BP diastolic 77–94; PULSE 59–70; RESP 16; TEMP 36.2–36.6; O2SAT 95–99; BMI 30.2
--- NOTE | 2022-11-12 | COLBX_PTH ---
PATIENT: TENZIN CONTEH LOC: EN U#:[id number] AGE/SX: 42/M ROOM: RE11/12/[address]: Dr. Constantine Srinivasan MD : 1980 BED: DIS: 11/12/2022 SPEC #: [id number] RECD: 11/12/22 12:50 STATUS: LENNOX COLT #: [id number] EMILY: 11/12/22 00:[address]: Constantine Srinivasan DEPT: SURGICAL PATHOLOGY RECD BY: Nabil Rg ENTERED: 11/12/22 12:51 SP TYPE: COLON BX OTHR DR: Dr. Ranjith Barney MD Tissues: A - COLON BIOPSY B - Descending colon C - Rectum, NOS Procedures: Surgery Specimen Level IV HEADER OPERATION: Colonoscopy, biopsy, polypectomy PRE-OP DIAGNOSIS: Diverticulitis TISSUE SUBMITTED: A - Random colon biopsy, B - Descending polyp, C - Rectal polyp MICROSCOPIC DIAGNOSIS A. Colon, random biopsy: Fragments of colonic mucosa, no pathologic diagnosis. B. Descending colon polyp, biopsy: A polypoid fragment of colonic mucosa, no pathologic diagnosis. C. Rectal polyp, polypectomy: Fragments of tubular adenoma. DANK:calvin 11/15/2022 MICROSCOPIC DESCRIPTION Slides are reviewed. GROSS DESCRIPTION A - Received in fixative is one container labeled with the patient's name and designated random colon biopsy. The specimen consists of multiple irregular fragments of light mujica soft tissue that in aggregate measure 2.0 x 0.5 x 0.1 cm. The specimen is totally submitted in one cassette. B - Received in fixative is one container labeled with the patient's name and designated descending polyp. The specimen consists of one irregular fragment of light mujica soft tissue that measures 0.3 x 0.3 x 0.1 cm. The specimen is totally submitted in one cassette. C - Received in fixative is one container labeled with the patient's name and designated rectal polyp. The specimen consists of multiple irregular fragments of light mujica soft tissue that in aggregate measure 0.5 x 0.3 x 0.2 cm. The specimen is totally submitted in one cassette. / DANK:calvin 11/12/2022 TC:1 CPT: 59754 x3
[2022-11-12] MEDS: Lactated Ringers 1,000 ML 15 ML IV (08:11)
--- NOTE | 2022-11-12 08:41 | PCM.HP.BLA ---
History and Physical Date of Admission: 11/12/22 Intake Vital Signs 08/21/2317:53 10/11/2313:46 Height 6 ft 6 ft Weight: 226 lb 2 oz BMI 30.7 BP 150/89 H Blood Pressure Location Rt brachial Position Sitting Respiration 18 Pulse 101 H Pulse Source Monitor Temp 97.6 F L Pulse Oximetry (%) 95 Oxygen Delivery Method room air Intake Visit Reasons: R TEMPORAL LIPOMA Chief Complaint: right temporal lipoma Allergies Penicillins Allergy (Verified 10/11/22 14:47) Unknown Medications atorvastatin 20 mg tablet 20 mg PO QHS #30 tabs 08/26/20 [Rx Confirmed 10/11/22] aspirin 81 mg tablet 81 mg PO DAILY 10/12/21 [History Confirmed 10/11/22] metformin 500 mg 24 hr tablet,extended release 500 mg PO DAILY 10/12/21 [History Confirmed 10/11/22] arabwjyk-ssavjcxt-cpdop acid 400 mcg-vit K 20 mcg-lycop 300 mcg tablet (Men's Multivitamin) 1 tab PO DAILY 10/12/21 [History Confirmed 10/11/22] quinapril 10 mg tablet 10 mg PO DAILY 04/01/22 [History Confirmed 10/11/22] ciprofloxacin HCl 500 mg tablet 500 mg PO BID #20 tabs 07/28/22 [Rx Confirmed 10/11/22] metronidazole 500 mg tablet 500 mg PO TID #30 tabs 07/28/22 [Rx Confirmed 10/11/22] PFSH Medical History Essential (primary) hypertension Hyperglycemia Hyperlipidemia Polyarthralgia Surgical History History of left heart catheterization (08/26/20) Social History household members: spouse and children Smoking Status: Never smoker alcohol intake: current alcohol intake frequency: holidays/special occasions only Alcohol type: beer substance use type: does not use HPI HPI HPI: The patient has an area over his right eyebrow that he would like removed. He says has been there for 20 years. He is also here for colonoscopy. He recently had diverticulitis. He has never had a colonoscopy in the past. He is also been having a lot of bowel issues including diarrhea and weakness. The patient is being treated by GI for pancreatic insufficiency. ROS General General: No weight change, appetite, fatigue, colon cancer, breast cancer or weakness HEENT HEENT: No difficulty swallowing, eye injury, eye surgery, swollen glands or hoarseness Endo Endocrine: No thyroid disease, diabetes mellitus, thyroid cancer, Hair loss, heat intolerance or cold intolerance Skin Skin: No rash or changing moles Breast Breast: No left breast lump, right breast lump, nipple discharge, breast pain, abnormal mammogram, abnormal US or breast enlargement Musc Musculoskeletal: No back problems, arthritis, rheumatoid arthritis, gout or joint pain Cardio Cardiovascular: No murmur, pacemaker, heart disease, atrial fibrillation, high blood pressure, heart attack, heart stent, palpitations, shortness of breat with exertion or chest pain Psych Psychiatric: No depression, anxiety or hearing voices Resp Respiratory: No shortness of breath, No sleep apnea, No cough, No COPD, No asthma, No emphysema and No wheezing Gastro Gastrointestinal: No abdominal pain, No nausea or vomiting, No diarrhea, No constipation, No blood in stool, No acid reflux, No hemorrhoids, No ulcers, No gallbladder problem and No black,tarry stools [place]aro Hematologic: No blood thinners, No blood disorders, No bleeding, No anemia and No blood clots Neuro Neurologic: No system reviewed and no additional complaints, except as documented, No as per HPI, No abnormal gait, No abnormal hearing, No abnormal movements, No abnormal speech, No behavioral changes, No burning sensations, No confusion, No convulsions, No disequilibrium, No dizziness, No localized weakness, No frequent falls, No headache(s), No lack of coordination, No loss of vision, No memory loss, No numbness, No other visual disturbances, No radicular pain, No restless legs, No sensory deficit, No syncope, No tingling, No tremor(s), No weakness and No other Exam Const General: cooperative Orientation: alert and oriented x3 HENMT Head: normal to inspection Neck Neck: normal visual inspection and full ROM Chest Chest palpation & inspection: normal inspection of the chest Resp Effort & Inspection: normal respiratory effort Auscultation: clear to auscultation bilaterally Cardio Rate: regular rate Rhythm: regular rhythm GI Inspection: non-distended Palpation: soft and nontender Skin General: no rashes or lesions noted Neuro General: patient alert and patient oriented x3 Extrem General: full ROM Psych Appearance: grossly normal Mental Status: mental status grossly normal Office Procedures Procedure Time Out Time Out Informed consent given: Yes Consent signed: Yes Time out checklist: patient, procedure, site marked/identified, positioning of patient, supplies available, allergies confirmed and team agrees on procedure Time out staff in room: Yes Time out verified: Yes Time out date: 10/11/22 Time out time: 03:00 Assessment and Plan Assessment and Plan (1) Diverticulitis: Status: Inactive Plan: The patient has had history of diverticulitis and does have diarrhea and I recommended colonoscopy with evaluation of the sigmoid colon where the diverticulitis was and biopsies of the colon. I explained endoscopy in detail to the patient. I explained the risks including but not limited to stroke or heart attack with anesthesia, perforation of the GI tract, bleeding, infection. I explained that any of these could necessitate further emergency surgery. The patient understands and all questions were answered sufficiently. The patient wishes to proceed with procedure. I have asked him to hold his aspirin for the procedure. Constantine Srinivasan MD Pager: [facility] [address] [place] [address], [address] [place] [address] Office: I have examined the patient and the H&P has been reviewed. There are no clinical changes since date of exam.
--- NOTE | 2022-11-12 09:25 | OP.CCLET_ITS ---
11/12/2022 Ranjith Barney [address] [place] [address] Re : Colonoscopy procedure for Julian Echavarria Dear Dr. Barney This procedure was performed on Saturday, November 12, 2022. My impressions and recommendations are as follows: Impressions : - Two small polyps in the rectum and in the descending colon, removed with a hot snare. Resected and retrieved. - The examination was otherwise normal on direct and retroflexion views. - Diverticulosis in the sigmoid colon. - Biopsies were taken with a cold forceps from the entire colon for evaluation of microscopic colitis. Recommendations : - Discharge patient to home. - Resume previous diet. - Continue present medications. - Await pathology results. - Repeat colonoscopy in 5 years for surveillance based on pathology results. My findings are described in the full procedure note, which is enclosed. If I can be of further assistance, please feel free to contact me at Doctor phone number(s): , Work: . Sincerely, Constantine Srinivasan MD 11/12/2022 9:25:11 AM This report has been signed electronically.
--- NOTE | 2022-11-12 09:25 | OP.COLON_ITS ---
Patient Name: Julian Echavarria Procedure Date: 11/12/2022 8:48 AM Date of : 1980 Age: 42 Procedure: Colonoscopy Indications: Follow-up of diverticulitis, Chronic diarrhea Providers: Constantine Srinivasan MD Referring MD: Ranjith Barney Medicines: Monitored Anesthesia Care Patient Profile: Last Colonoscopy: none. The patient's first colonoscopy is today. Complications: No immediate complications. Estimated blood loss: Minimal. Procedure: Pre-Anesthesia Assessment: - Prior to the procedure, a History and Physical was performed, and patient medications and allergies were reviewed. The patient's tolerance of previous anesthesia was also reviewed. The risks and benefits of the procedure and the sedation options and risks were discussed with the patient. All questions were answered, and informed consent was obtained. Prior Anticoagulants: The patient has taken no anticoagulant or antiplatelet agents. After reviewing the risks and benefits, the patient was deemed in satisfactory condition to undergo the procedure. After I obtained informed consent, the scope was passed under direct vision. Throughout the procedure, the patient's blood pressure, pulse, and oxygen saturations were monitored continuously. The Colonoscope was introduced through the anus and advanced to the cecum, identified by appendiceal orifice and ileocecal valve. The colonoscopy was performed without difficulty. The patient tolerated the procedure well. The quality of the bowel preparation was good. The ileocecal valve, appendiceal orifice, and rectum were photographed. Scope In: 8:59:24 AM Scope Withdrawal Time 0 hours 16 minutes 1 second Scope Out: 9:20:40 AM Total Procedure Duration Time 0 hours 21 minutes 16 seconds Findings: Two polyps were found in the rectum and descending colon. The polyps were small in size. These polyps were removed with a hot snare. Resection and retrieval were complete. The exam was otherwise without abnormality on direct and retroflexion views. A few small-mouthed diverticula were found in the sigmoid colon. Biopsies for histology were taken with a cold forceps from the entire colon for evaluation of microscopic colitis. Impression: - Two small polyps in the rectum and in the descending colon, removed with a hot snare. Resected and retrieved. - The examination was otherwise normal on direct and retroflexion views. - Diverticulosis in the sigmoid colon. - Biopsies were taken with a cold forceps from the entire colon for evaluation of microscopic colitis. Recommendation: - Discharge patient to home. - Resume previous diet. - Continue present medications. - Await pathology results. - Repeat colonoscopy in 5 years for surveillance based on pathology results. Procedure Code(s): --- Professional --- 02273, Colonoscopy, flexible; with removal of tumor(s), polyp(s), or other lesion(s) by snare technique 25534, 59, Colonoscopy, flexible; with biopsy, single or multiple Diagnosis Code(s): --- Professional --- D12.8, Benign neoplasm of rectum D12.4, Benign neoplasm of descending colon K57.32, Diverticulitis of large intestine without perforation or abscess without bleeding K52.9, Noninfective gastroenteritis and colitis, unspecified K57.30, Diverticulosis of large intestine without perforation or abscess without bleeding CPT copyright 2021 [employer]. All rights reserved. The codes documented in this report are preliminary and upon hydraulic rubbish compactor mechanic review may be revised to meet current compliance requirements. Constantine Srinivasan MD 11/12/2022 9:25:11 AM This report has been signed electronically. Number of Addenda: 0 Note Initiated On: 11/12/2022 8:48 AM
== END 2022-11-12 10:15 | disposition home or self-care (01) ==
LOC: EN 07:49 → AC 07:50
PROVIDERS: PCP Family Medicine; Referring Provider Family Medicine; Visit Provider Surgery
PROC: 0DJD8ZZ Inspection of Lower Intestinal Tract, Via Natural or Artificial Opening Endoscopic (ICD-10-PCS; CPT 45378; principal; 2022-11-12 08:55)
DX: D12.4 Benign neoplasm of descending colon (principal); D12.8 Benign neoplasm of rectum; K57.32 Diverticulitis of large intestine without perforation or abscess without bleeding; K52.9 Noninfective gastroenteritis and colitis, unspecified; E78.5 Hyperlipidemia, unspecified; I10 Essential (primary) hypertension; Z79.82 Long term (current) use of aspirin; Z79.899 Other long term (current) drug therapy
CPT/HCPCS: 45385; 45380; 88305; J7120; J2405

== ENCOUNTER → 2022-11-25 | Outpatient (CLI) | payer BC, SELFPAY ==
--- NOTE | 2022-11-25 15:24 | MRI_ITS ---
STUDY: MRI ORBITS WITH AND WITHOUT CONTRAST REASON FOR EXAM: Male, 42 years old. enlarging soft tissue mass right brow area TECHNIQUE: Standardized fat and water weighted pulse sequences were obtained in all 3 orthogonal planes, pre-and post contrast administration. IV 20ml clariscan was administered for the contrast portion of the examination. COMPARISON: None. FINDINGS: There is a nonspecific soft tissue mass within the soft tissues of the scalp overlying the right frontal bone demonstrating intermediate signal intensity on all pulse weighted imaging sequences as well as intralesional curvilinear vascularity or calcification.. The nodule enhances relatively homogeneously following contrast injection and measures approximately 1.72 x 1.93 x 1.09 cm. There is no involvement of the orbits or cranial vault identified. Normal bilateral globes. Normal bilateral optic nerve sheath complexes and optic nerves. Normal bilateral intraconal and extraconal spaces. Normal bilateral extraocular muscles. Normal optic chiasm and post-chiasmatic tracts. Normal sella turcica, pituitary gland, infundibular stalk, and hypothalamus. Normal bilateral cavernous sinuses. Normal tectal plate and pineal gland. Normal flow voids within the major intracranial circulation suggesting patency by spin echo criteria. Normal size of the ventricles and extra-axial spaces for the patient''s age. Normal white matter tracts of the supratentorial brain. Normal bilateral basal ganglia. Normal thalami. There is no extra-axial fluid accumulation. Normal midbrain, olimpia and medulla. Normal cerebellum. Normal basal cisterns. MRI/Orbit Face Neck W/WO Contrast IMPRESSION: Nonspecific skin lesion within the scalp overlying the right frontal bone as described above Electronically Signed: Ben Domingo MD at 17:18 EDT ,
[2022-11-25 15:49] LABS: CREATININE FINGERSTICK 1.2 mg/dL (0.70-1.30); EGFR FINGERSTICK > 60.0000 mL/min (>60)
== END | disposition home or self-care (01) ==
LOC: MRI 15:15
PROVIDERS: PCP Family Medicine; Referring Provider Plastic Surgery; Visit Provider Plastic Surgery
DX: D48.1 Neoplasm of uncertain behavior of connective and other soft tissue (principal)
CPT/HCPCS: 70543; A9575

== ENCOUNTER → 2023-01-17 | Outpatient (CLI) | payer BC, SELFPAY ==
--- NOTE | 2023-01-17 15:33 | MRI_ITS ---
EXAM: MR HEAD WITHOUT AND WITH INTRAVENOUS CONTRAST CLINICAL INDICATION: paresthesias; nonsustained nystagmus; tinnitus TECHNIQUE: Multiplanar and multisequence MR images of the brain were obtained without and with intravenous contrast. CONTRAST: IV 20 cc clariscan COMPARISON: CT head, 02/02/2021 and MRI orbits, 11/25/2022. FINDINGS: BRAIN AND EXTRA-AXIAL SPACES: No significant abnormality. No intra- or extra-axial hemorrhage. No evidence of acute infarct. No intracranial mass or mass effect. There is preservation of the lang/white matter interface. Posterior fossa structures are unremarkable. Ventricles are appropriate for age. No hydrocephalus. Basal cisterns are patent. SELLA: No significant abnormality. Normal sella turcica, pituitary gland, infundibular stalk, optic chiasm and hypothalamus. AUDITORY SYSTEM: No significant abnormality. The internal auditory canals are patent. BONES/JOINTS: No significant abnormality. No discrete lytic or blastic abnormalities. SINUSES: Normal as visualized. Clear. MASTOID AIR CELLS: Normal as visualized. Clear. ORBITS: Normal as visualized. Both globes, extraocular muscles, optic nerves and retrobulbar fat appear unremarkable. VASCULATURE: Intracranial vascular flow voids are preserved. SOFT TISSUES: T2 FLAIR hyperintense enhancing lesion measuring up to approximately 2.1 cm in the right frontal scalp is similar in size to the prior examination with intralesional flow voids, better demonstrated on the prior examination suggesting that this may be a vascular malformation. MRI/Brain W/WO Contrast IMPRESSION: 1. T2 FLAIR hyperintense enhancing lesion measuring up to approximately 2.1 cm in the right frontal scalp is similar in size to the prior examination with intralesional flow voids, better demonstrated on the prior examination suggesting that this may be a vascular malformation or perhaps neoplasm. 2. Few scattered foci of white matter signal abnormalities are nonspecific, perhaps secondary to migraine related changes, mild/early chronic microvascular ischemic changes, or the sequela of prior infection/inflammation/trauma. Electronically Signed: Suhail Gonzáles DO at 22:42 EST ,
[2023-01-17 16:11] LABS: CREATININE FINGERSTICK 1.5 mg/dL (0.70-1.30)
== END | disposition home or self-care (01) ==
LOC: MRI 15:27
PROVIDERS: PCP Family Medicine; Visit Provider Psychiatry & Neurology Neurology
DX: M79.601 Pain in right arm (principal); M79.602 Pain in left arm; R20.2 Paresthesia of skin; H55.00 Unspecified nystagmus; H93.19 Tinnitus, unspecified ear
CPT/HCPCS: 70553; A9575

== ENCOUNTER → 2023-02-05 | Outpatient (CLI) | payer BC, SELFPAY ==
[2023-02-05 09:34] LABS: Hematocrit 41.4 % (40-54); Hemoglobin 13.9 g/dL (13.0-16.5); Mean Corp Hgb Conc 33.6 g/dL (32-36); Mean Corpuscular Hgb 32.2 pg (27.0-32.0); Mean Corpuscular Volume 95.8 fL (80-94); Mean Platelet Vol. 9.1 fl (6.2-12.0); Platelet Count 155 K/mm3 (150-450); RBC Distribution Width CV 12.9 % (11.6-14.6); RBC Distribution Width SD 45.9 fl (35.1-43.9); Red Blood Count 4.32 M/mm3 (4.6-6.2); White Blood Count 4.8 K/mm3 (4.4-11.0)
[2023-02-05 09:41] LABS: Erythrocyte Sedimentation Rate 4 mm/hr (0-20)
[2023-02-05 10:54] LABS: ALB/GLOB Ratio 0.9 RATIO (0.9-2.4); AST(SGOT) 48 U/L (15-37); Alanine Aminotransfer ALT/SGPT 50 U/L (16-61); Albumin, Serum 3.7 g/dL (3.2-5.0); Alkaline Phosphatase 44 U/L (45-117); Anion Gap 5 (5-15); BUN 17 mg/dL (7-18); BUN/Creat Ratio 13.5 RATIO (10-20); Calcium,Total 9.1 mg/dL (8.5-10.1); Chloride 107 mmol/L (98-107); Creatinine, Serum 1.26 mg/dL (0.70-1.30); EST Glomerular Filtration Rate 67 mL/min (>60); Est Glom Filt Rate - Afr Amer 81 mL/min (>60); Globulin 3.9 g/dL (2.2-4.2); Glucose 151 mg/dL (74-106); Potassium 4.7 mmol/L (3.5-5.1); Protein, Total 7.6 g/dL (6.4-8.2); Sodium Level 137 mmol/L (136-145); Thyroid Stim Hormone (TSH) 1.47 uIU/mL (0.358-3.74)
[2023-02-05 13:36] LABS: Hemoglobin A1c 5.5 % (3.8-5.6)
[2023-02-07 09:10] LABS: Vitamin B12 814 pg/mL (211-911)
[2023-02-08 13:07] LABS: Vitamin D 1,25-Dihydroxy 18.5 pg/mL (24.8-81.5)
[2023-02-11 01:06] LABS: Free Kappa Light Chains 14.3 mg/L (3.3-19.4); Free Lambda Light Chains 12.3 mg/L (5.7-26.3); Vitamin B1, Thiamine 98.7 nmol/L (66.5-200.0)
== END | disposition home or self-care (01) ==
PROVIDERS: PCP Family Medicine; Referring Provider Psychiatry & Neurology Neurology; Visit Provider Psychiatry & Neurology Neurology
DX: R10.2 Pelvic and perineal pain (principal); E11.9 Type 2 diabetes mellitus without complications; M79.601 Pain in right arm; M79.602 Pain in left arm; R20.2 Paresthesia of skin; R53.83 Other fatigue
CPT/HCPCS: 36415; 80053; 82607; 82652; 82746; 83036; 83883; 84425; 84443; 85027; 85652

== ENCOUNTER → 2024-07-20 | Outpatient (CLI) | payer BC, SELFPAY ==
[2024-07-20 12:31] LABS: Absolute Lymphocyte Count 1.31 X10^3/uL (0.83-4.51); Absolute Neutrophil Count 4.1 X10^3/uL (2.0-7.7); Basophil# 0.05 X10^3/uL; Basophil% 0.8 % (0-1); Eosinophil# 0.05 X10^3/uL; Eosinophils% 0.8 % (0-5); Hematocrit 39.3 % (40-54); Hemoglobin 14.2 g/dL (13.0-16.5); Lymphocyte # 1.31 X10^3/ul (0.83-4.51); Lymphocyte % 21.9 % (19-41); Mean Corp Hgb Conc 36.1 g/dL (32-36); Mean Corpuscular Hgb 35.4 pg (27.0-32.0); Mean Platelet Vol. 9.8 fl (6.2-12.0); Monocyte# 0.38 X10^3/uL; Monocyte% 6.4 % (0-10); NRBC Flagged by Analyzer 0 % (0-5); Neutrophil # 4.14 X10^3/uL (2.7-7.7); Neutrophil % 69.4 % (47-70); Platelet Count 164 K/mm3 (150-450); RBC Distribution Width CV 12.6 % (11.6-14.6); RBC Distribution Width SD 45.3 fl (35.1-43.9); Red Blood Count 4.01 M/mm3 (4.6-6.2)
[2024-07-20 12:54] LABS: Hepatitis B Surface Antibody REAC
[2024-07-20 13:25] LABS: Cholesterol 238 mg/dL (<=200); High Density Lipoprotein 41 mg/dL; Low Density Lipoprotein Calc. -224 mg/dL; Triglycerides 2107 mg/dL; Very Low Density Lipoprotein 421 mg/dL (5-40); cholesterol:hdl ratio screen 5.86
[2024-07-20 13:45] LABS: ALB/GLOB Ratio 1.6 RATIO (0.9-2.4); AST(SGOT) 72 U/L (<=37); Alanine Aminotransfer ALT/SGPT 64 U/L (<=46); Albumin, Serum 4.5 g/dL (3.5-5.0); Alkaline Phosphatase 55 U/L (40-129); Anion Gap 16 (5-15); BUN 16 mg/dL (4-19); BUN/Creat Ratio 12.2 RATIO (10-20); Calcium,Total 9.2 mg/dL (7.6-11.0); Carbon Dioxide 18.9 mmol/L (21.0-32.0); Chloride 100 mmol/L (98-108); EST Glomerular Filtration Rate 70 (>60); Globulin 2.7 g/dL (2.2-4.2); Glucose 154 mg/dL (70-99); Potassium 4.6 mmol/L (3.3-5.1); Protein, Total 7.2 g/dL (5.9-8.4); Sodium Level 134 mmol/L (133-145); Total Bilirubin 0.23 mg/dL (0.00-1.30)
[2024-07-21 06:08] LABS: Hepatitis A AB, Total Negative (Negative)
== END | disposition home or self-care (01) ==
LOC: MFPLAB 10:38
PROVIDERS: PCP Family Medicine; Referring Provider Family Medicine; Visit Provider Family Medicine
DX: E88.810 Metabolic syndrome (principal); E88.01 Alpha-1-antitrypsin deficiency; Z15.89 Genetic susceptibility to other disease; E55.9 Vitamin D deficiency, unspecified
CPT/HCPCS: 36415; 80053; 80061; 82306; 83036; 85025; 86706; 86708